=== PATIENT | male | born 1955 | race Caucasian/White ===

== ENCOUNTER → 2020-08-01 09:06 | Outpatient (BNVA) | payer OTHER, SELFPAY | PROVIDERS: PCP Internal Medicine; Referring Provider Internal Medicine; Visit Provider Internal Medicine Pulmonary Disease | DX: Z76.89 Persons encountering health services in other specified circumstances (principal) ==

== ENCOUNTER 2020-08-01 10:01 | Outpatient (REF) | payer OTHER, SELFPAY ==
--- NOTE | 2020-08-01 17:04 | PFT_ITS ---
Forced vital capacity is normal. FEV1 slightly reduced. FEV1/FVC ratio is decreased. ULD01-45 is moderately reduced and MVV also moderately reduced. Post bronchodilator therapy, there is no significant improvement. Total lung capacity normal. Residual volume slightly increased. Diffusion capacity is normal. CONCLUSION: Jolh-fz-alnawela degree of obstructive airway disorder. No response to bronchodilator therapy. MD RYLEE Vazquez/MODL / [id number]
== END 2020-08-01 10:02 | disposition home or self-care (01) ==
LOC: HO.RESP 10:01
PROVIDERS: Visit Provider Internal Medicine Pulmonary Disease
DX: J43.9 Emphysema, unspecified (principal)
CPT/HCPCS: 94060; 94727; 94729

== ENCOUNTER → 2020-12-04 15:43 | Outpatient (BNVA) | payer BC, SELFPAY | PROVIDERS: PCP Internal Medicine; Visit Provider Internal Medicine Pulmonary Disease ==

== ENCOUNTER 2020-12-14 14:25 | Outpatient (REF) | payer BC, SELFPAY ==
--- NOTE | ~2020-12-14 | FL_ITS ---
EXAMINATION: XR BARIUM SWALLOW CLINICAL INFORMATION: Dysphagia COMPARISON: None TECHNIQUE: Routine modified barium swallow was performed with the patient in a left lateral seated position. The patient took thin, nectar, honey-thick, pureed and solid food consistencies of barium without difficulty. FINDINGS: The patient demonstrated normal oral bolus formation. There was a slight delay in the swallow trigger mechanism with mild pooling of fluid in the vallecula and piriform sinuses. There was good contraction and elevation of the soft palate without evidence of nasopharyngeal reflux. There was good anterior-superior excursion of the laryngeal-hyoid complex. Limited posterior-inferior tipping of the epiglottis. No cricopharyngeal abnormalities were noted. There is narrowed appearance of the upper esophagus. There is aspiration visualized with thin, nectar, and honey thick liquids. This does trigger a cough reflex on some events, and is silent on others. FLUOROSCOPY TIME: 2.2 minutes DOSE AREA PRODUCT: 1.988 Gy-cm2 (shaffer-centimeter squared) FL/FL barium swallow modified IMPRESSION: 1. Aspiration with all liquid consistencies. 2. Abnormalities of the oral and pharyngeal phase of swallow. Narrowing of the cervical esophagus. 3. Please see speech pathology report for additional information and recommendations.
--- NOTE | 2020-12-20 09:17 | MHC.SL.IMP ---
Date of Plan of Treatment: 12/14/20 Onset of Symptoms/Illness: 09/15/00 Date Treatment Started: 12/14/20 Admitting Diagnosis: Modified Barium Swallow Study Fluoroscopic Evaluation of Swallowing Function CPT Code 90180 Evaluation Year: 2020 Reason for Study: Dysphagia Referring Physician: Dr. 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 Social History: Prior Tobacco Use: cigarettes; Quit 1999; Current (pre-evaluation) Intake/Diet: Route: PO Diet Grade: Regular Liquid Consistencies: Thin Pre-Study Functional Oral Intake Scale (FOIS): 6- Total oral intake with no special preparation, but must avoid specific foods or liquid items Pain: None reported at time of study Primary Speech & Language Diagnosis: R13.12 Oropharyngeal Phase Dysphagia Secondary Speech & Language Diagnosis: Reason for Today's Visit: 23451 Modified Barium Swallow Study Comments: Pt has past medical history significant for squamous cell carcinoma of the larynx. Pt is status post chemotherapy and radiation. Pre-evaluation Dietary Consistencies: Regular Pre-evaluation Liquid Consistency: Thin Pre-evaluation Medication Administration: Whole with Liquid Medical History: Cancer:Head & Neck COPD Background Information: Pt is a 65 year old male who was referred for a modified barium swallow study by his hydroelectric operator, Dr. Keven Pickett. Information provided in this report was obtained through chart review and pt report. Pt attended this exam unaccompanied and ambulates without assistance. Pt is a former 25+ pack/year smoker however, quit in 1999. He reports history of throat cancer back in 2000 which he received chemotherapy and radiation with resolution. Pt's condition further complicated by dysphagia and aspiration risk resulting in right upper lobe abscess approximately 2 years prior. This has since been resolved. Pt was seen by Dr. Pickett on 12/04/20 for management of underlying COPD/emphysema and pulmonary nodules. Per pt report, pt was admitted to [facility] in October of 2020 for aspiration PNA. Pt was intubated and extubated 2 days after. Per reportedly evaluated by EXTRUSION PROCESS OPERATOR post extubation and recommended thickened liquids. Pt stated that he has never received an MBSS evaluation following radiation therapy or during recent hospitalization. Pt stated that he has thickener at home for his beverages however, rarely uses it. He also reported that he talks a lot during meals and believes that is contributing to his increased swallowing difficulties. Oral Motor Exam Facial Symmetry: Symmetrical Facial Movement: Oral-Facial Facial Miscellaneous Observations: Mouth Occlusion: Normal Oral-Facial Teeth Characteristics: Intact/Normal Oral-Facial Teeth Miscellaneous Observation: Natural dentition adequate for mastication Oral-Facial Lip Pucker Description: Normal Oral-Facial Smile (Lips) Description: Normal Oral-Facial Puff Cheeks Description: Normal Tongue Size: Normal Tongue Frenum Length: Normal Tongue Excursion Description: Normal Tongue Range of Movement Description: Normal Tongue Speed of Movement Description: Normal Tongue Strength of Movement (against opposing pressure): Normal Tongue Movement Characteristics: Normal/Absent Oral Expression Ability: No Impairment Is patient able to manage secretions?: Yes Is patient able to produce volitional cough?: Yes Food and Liquid Trials: Oral Impairment: Lip Closure: 1=Interlabial escape; no progression to anterior tip Oral Impairment: Tongue Control During Bolus Hold: 1=Escape to lateral buccal cavity/floor of mouth (FOM) Oral Impairment: Bolus Preparation/Mastication: 0=Timely and efficient chewing and mashing Oral Impairment: Bolus Transport/Lingual Motion: 0=Brisk tongue motion Oral Impairment: Oral Residue: 2=Residue collection on oral structures Oral Impairment:Initiation of Pharyngeal Swallow: 3=Bolus head in pyriforms Pharyngeal Impairment: Soft Palate Elevation: 0=No bolus between soft palate (SP)/pharyngeal wall (PW) Pharyngeal Impairment: Larngeal Elevation: 2=Minimal superior movement of thyroid cartilage (see description) Pharyngeal Impairment: Anterior Hyoid Excursion: 1=Partial anterior movement Pharyngeal Impairment: Epiglottic Movement: 2=No inversion Pharyngeal Impairment: Laryngeal Vestibular Closure:: 2=None: No inversion Pharyngeal Impairment: Pharyngeal Stripping Wave: 1=Present: diminished Pharyngeal Impairment: Pharyngeal Contraction: Did not test Pharyngeal Impairment: Pharyngoesophageal Segment Openin=Minimal distension/minimal duration: marked obstruction of flow Pharyngeal Impairment: Tongue Base (TB) Retraction: 2=Narrow column of contrast/air between TB and posterior PW Pharyngeal Impairment: Pharyngeal Residue: 3=Majority of contrast within or on pharyngeal structures Pharyngeal Impairment: Espohogeal Clearance Upright Position: Did not test Impressions and Recommendations Clinicial Observations: Time-out: performed at 3:00 Evaluation Start: 02:37; Stop: 02:43 Patient Positioning: Seated 70-90 degrees Viewing Planes: LATERAL ONLY Contrast: MBSImP? Standardized Protocol using commercially prepared, standardized Barium viscosities, including: Varibar? THIN LIQUID (40% w/v, <15 cps) , Varibar? NECTAR (40% w/v, <150-450 cps) , Varibar? THIN HONEY (40% w/v, <800-1800 cps) , 1/2 Shortbread Cookie (1 x1 x.25 ) MBSImP ID: [id number] [facility] Results: Lip closure for intraoral bolus containment resulted in interlabial escape, without progression to the anterior lip. Tongue control during bolus hold allowed bolus escape to the lateral buccal cavity/floor of mouth. Bolus preparation and mastication resulted in timely and efficient chewing and mashing. Bolus transport/lingual motion was with brisk tongue motion. Oral residue was a collection on oral structures. Initiation of the pharyngeal swallow occurred when the bolus head was in the pyriform sinuses. Soft palate elevation resulted in no bolus between the soft palate and the pharyngeal wall. Laryngeal elevation was incomplete, as indicated through minimal superior movement of the thyroid cartilage with minimal approximation of the arytenoids to the epiglottic petiole. Anterior hyoid excursion demonstrated partial anterior movement. Epiglottic movement resulted in no inversion. Laryngeal vestibular closure was absent, resulting in a wide column of air/contrast within the laryngeal vestibule at the height of the swallow. Pharyngeal stripping wave was present, but diminished. Pharyngeal contraction could not be determined due to logistical reasons not related to physiologic impairment. Pharyngoesophageal segment opening demonstrated minimal distension/minimal duration, with marked obstruction of bolus flow. Tongue base retraction allowed a narrow column of contrast or air between the retracted tongue base and the posterior pharyngeal wall. Pharyngeal residue was the majority of contrast within or on pharyngeal structures. Esophageal clearance in the upright position could not be assessed due to logistical reasons not related to physiologic impairment. Oral Impairment Score: 6 Pharyngeal Impairment Score: 15 (absence of score, component 13) Esophageal Impairment Score: --- (absence of score, component 17) ASSESSMENT: This exam was conducted by radiologist and speech-language pathologist. Patient was seated at 90 degree angle in chair for lateral view only. Patient was able to feed himself. He trialed the following solid and liquid consistencies: -5mL thin liquid barium -Cup sip thin liquid barium -Cup sip [place] thick liquid barium -Cup sip Thin Honey thick liquid barium -Pureed solid (applesauce mixed with barium paste) -Ground solid (chicken salad mixed with barium paste) -Regular solid (Shonda Doone cookie coated in barium paste) The patient's performance in today's study indicated impairment in the following components of swallowing physiology: ORAL PHASE: -Mild oral residue coating tongue base -Delayed pharyngeal swallow trigger when bolus head reached pyriform sinuses PHARYNGEAL PHASE: -Partial laryngeal elevation with partial anterior hyoid movement and no epiglottic inversion -Incomplete laryngeal vestibular closure with minimal superior movement of the thyroid cartilage and minimal approximation of arytenoids to epiglottic petiole -Minimal distension/minimal duration: marked obstruction of flow through pharyngoesophageal segment opening -Reduced tongue base retraction -Diminished pharyngeal stripping wave -Moderate pharyngeal residue; majority of contrast within or on pharyngeal structures Aspiration was observed in today's study. Thin Contrast entered the airway, passed below the vocal folds, and was not ejected from the trachea despite effort. Honey-thick, [place]-thick Contrast entered the airway, passed below the vocal folds, and no effort were made to eject. Pt stated that he has been having trouble swallowing for years, globus sensation and coughing with liquids. Pt also stated that he talks while eating and he notices that his swallowing difficulties increase during these instances. Pt's ability to protect his airway is impaired as a result of radiation therapy. Oral phase largely unremarkable. Pharyngeal swallow trigger is delayed. Pt's laryngeal elevation and excursion significantly reduced, epiglottic inversion was not visualized, minimal pharyngeal contraction resulting in increased pharyngeal retention, minimal tongue base retraction, and dysfunction of PES marked by minimal distension/duration of bolus flow through opening. The following compensatory strategies were trialed during today's study with no positive effect in swallowing function. Pt's history with these strategies is unknown. -Additional Swallow(s) per bolus -Chin tuck -Volitional cough and re-swallow -Volitional throat clear and re-swallow -Head turn to right and left Based on results of this exam, safest recommendation is NPO. Recommend consult with G.I./nutrition to determine appropriateness of ALTERNATIVE FEEDING METHOD due to visualized aspiration with all liquid consistencies on this exam, significant pharyngeal retention with no airway protection on this exam, and previous history of aspiration pneumonia requiring intubation. However, patient expressed that he is very motivated to eat by mouth. If patient chooses to forgo PO diet despite risk of aspiration/ pneumonia and EXTRUSION PROCESS OPERATOR recommendation for NPO, with understanding of these results and recommendations, patient may consider modified diet GROUND/MEC (NDD2) solids and PUDDING THICK liquids or HARRIS FREE WATER PROTOCOL with STRICT aspiration precautions and rigorous oral care routine. Patient expressed apprehension with thickener. Pt to have water, black coffee, or black tea (no cream or sugar) in limited quantities ONLY if pt follows STRICT ORAL CARE ROUTINE (at least 4 times daily). Regardless, pt requires strict aspiration precautions: -upright at 90 degrees when eating and drinking -small bites and sips -alternate solids with liquids -avoid sticky consistencies -FREQUENT ORAL CARE (4 times daily) EXTRUSION PROCESS OPERATOR also recommends speech therapy consult/evaluation with a speech therapist certified and trained in [employer] to determine candidacy for therapy. This therapy is provided at [facility] in [place], [place]. EXTRUSION PROCESS OPERATOR specialized in treatment of swallowing disorders status post chemo and radiation therapy may also trial thermal stimulation or other exercises though pt's prognosis is guarded given his past history of squamous cell carcinoma affecting the larynx. It is important to note MBSS objective studies are snapshots in time and Patient function might vary with factors such as time of day or concomitant medical conditions. For this reason, the final treatment plan for this patient should rest with their medical care team. Additional recommendations should be considered with the totality of the Patient in mind. Liquid Intake Recommendation: NPO Liquid Intake Strategies: Dietary Recommendations: NPO Medication Administration: NPO Supervision during eating and or drinking: None Needed Recommended Treatments: Compens. Strategy Educat. Recommendation for Speech Therapy: Outpatient Speech Therapy Speech Therapy through [facility] Text Comment: Recommend speech therapy consult/evaluation with a speech therapist certified and trained in [employer] to determine candidacy for therapy. This therapy is provided at [facility] in [place], [place]. EXTRUSION PROCESS OPERATOR specialized in treatment of swallowing disorders status post chemo and radiation therapy may also trial thermal stimulation or other exercises, though pt's prognosis is guarded given his past history of squamous cell carcinoma affecting the larynx. Frequency/Duration: To be determined based on candidacy for treatment Date Range for Service Requested: Timeline to reassess: PRN REFERRALS: The patient might benefit from a referral to: Gastroenterology Indication for Referral: Visible narrowing of esophagus Pulmonary Indication for Referral: Follow up with Dr. Pickett Alternate Feeding Method Indication for Referral: Aspiration visualized with all liquid consistencies and increased pharyngeal retention with no airway protection resulting in increased risk for aspiration. Dietary Consult Indication for Referral: Alternative feeding method ENT Consult Indication for Referral: Hx laryngeal cancer Thank for the opportunity to participate in the care of this patient. If you have any questions about the content of this report, please contact the [facility] at [facility]. Business Intelligence Etl Developer Clinican/Clinical Fellow: Yes: Tanya Garzon M.A., CF-EXTRUSION PROCESS OPERATOR Supervisory Statement: Yes Speech Language Pathologist: Doreen Young M.A., CCC-EXTRUSION PROCESS OPERATOR
== END 2020-12-14 14:26 | disposition home or self-care (01) ==
LOC: HO.XRAY 14:25
PROVIDERS: Visit Provider Internal Medicine Pulmonary Disease
DX: R13.10 Dysphagia, unspecified (principal)
CPT/HCPCS: 74230; 92611

== ENCOUNTER → 2020-12-22 15:36 | Outpatient (BNVA) | payer BC, SELFPAY | PROVIDERS: PCP Internal Medicine; Visit Provider Internal Medicine Pulmonary Disease ==

== ENCOUNTER → 2021-04-13 11:16 | Outpatient (BNVA) | payer OTHER, SELFPAY | PROVIDERS: PCP Internal Medicine; Visit Provider Physician Assistant Medical | DX: S61.212A Laceration without foreign body of right middle finger without damage to nail, initial encounter (principal); W26.9XXA Contact with unspecified sharp object(s), initial encounter | CPT/HCPCS: 90715; 99203 ==

== ENCOUNTER → 2021-04-16 13:33 | Outpatient (BNVA) | payer OTHER, SELFPAY | PROVIDERS: PCP Internal Medicine; Visit Provider Physician Assistant Medical | DX: S61.212D Laceration without foreign body of right middle finger without damage to nail, subsequent encounter (principal); X58.XXXD Exposure to other specified factors, subsequent encounter | CPT/HCPCS: 99213 ==

== ENCOUNTER → 2021-05-18 15:36 | Outpatient (BNVA) | payer BC, OTHER, SELFPAY | PROVIDERS: PCP Internal Medicine; Visit Provider Internal Medicine Pulmonary Disease ==

== ENCOUNTER → 2021-11-20 15:30 | Outpatient (BNVA) | payer BC, SELFPAY | PROVIDERS: PCP Internal Medicine; Visit Provider Internal Medicine Pulmonary Disease ==

== ENCOUNTER → 2023-01-21 14:39 | Outpatient (BNVA) | payer BC, SELFPAY | PROVIDERS: PCP Internal Medicine; Visit Provider Internal Medicine Pulmonary Disease ==

== ENCOUNTER → 2023-03-05 13:29 | Outpatient (BNVA) | payer MEDICARE, SELFPAY | PROVIDERS: PCP Internal Medicine; Visit Provider Internal Medicine Pulmonary Disease | DX: J43.9 Emphysema, unspecified (principal); Z93.0 Tracheostomy status | CPT/HCPCS: 99212 ==

== ENCOUNTER 2023-05-30 09:20 | Outpatient (AMB) | payer MEDICARE, SELFPAY ==
[2023-05-30 09:22] VITALS: BP 146/72; PULSE 67; O2SAT 99; BMI 22.9
--- NOTE | 2023-05-30 09:22 | MHC.OFFVIS ---
Intake Vital Signs 05/30/23 09:22 Height 5 ft 4 in Weight 133 lb 6.075 oz BMI 22.9 BP 146/72 H Blood Pressure Location Lt brachial Position Sitting Pulse 67 Pulse Source Doppler Pulse Oximetry (%) 99 Oxygen Delivery Method Room Air Intake Visit Reasons: COPD Allergies No Known Allergies Allergy (Verified 05/30/23 09:24) HPI COPD HPI Details 67-year-old gentleman, former 25+ pack-year smoker, quit 1999, with underlying history of squamous cell carcinoma of the larynx, status post chemo radiotherapy at [facility] in 2000 with resolution, further complicated by dysphagia and aspiration risk resulting in right upper lobe pulmonary abscess previously, now resolved, followed for underlying COPD/emphysema, and pulmonary nodules.? Patient had another aspiration event around the beginning of 2022 requiring prolonged hospitalization in [place], now status post tracheostomy and gastrostomy placement.? He continues to do well, the he does states that after an activity that involves on exertion he fill some dyspnea and he is interested in trying Anoro again. [facility] Social History Years Smoked: 25 yrs Review of Systems Const Denies daytime sleepiness, Denies excessive sweating, Denies fatigue, Denies fever(s), Denies lethargy, Denies malaise, Denies night sweats, Denies snoring and Denies weight loss Eyes Denies blurry vision and Denies itchy eyes ENT Denies nasal congestion, Denies post nasal drip, Denies sinus pain, Denies sinus pressure and Denies other ( Thrush) Card Denies chest pain, Denies pedal edema, Denies dyspnea, Denies orthopnea and Denies paroxysmal nocturnal dyspnea Resp Denies cough, Denies hemoptysis, Denies excessive phlegm production, Denies dyspnea, Denies snoring and Denies wheezing GI Denies abdominal pain and Denies heartburn Musc Denies myalgias, Denies arthralgias and Denies joint swelling Skin/Breast Denies rash Neuro Denies memory loss and Denies seizure-like activity Psych Denies abnormal sleep pattern, Denies anxiety and Denies memory loss Endo Denies excessive sweating, Denies fatigue and Denies heat intolerance Joel/Lymph Denies easy bruising Aller/Immun Denies itchy eyes, Denies seasonal rhinorrhea and Denies wheezing Physical Exam Vital Signs: Last Vital Signs Pulse 67 05/30/23 09:22 BP 146/72 H 05/30/23 09:22 Pulse Ox 99 05/30/23 09:22 Oxygen Delivery Method Room Air 05/30/23 09:22 BMI result Body Mass Index 22.9 Const General: no acute distress and alert Nutritional Appearance: not obese Orientation/consciousness: Other orientation findings ( oriented) HEENT Head: Yes atraumatic Eyes General: appearance normal, both eyes and all related structures Sclerae: sclerae normal EOM: EOMs intact bilaterally Neck Neck: Yes supple and Yes tracheostomy present (To room air) Lymphatic: no lymphadenopathy noted Resp Effort & Inspection: normal respiratory effort and no use of accessory muscles Auscultation: clear to auscultation bilaterally Cardio Rate: regular rate Rhythm: regular rhythm Heart sounds: no gallops, no murmurs and no rubs Skin General skin exam: other ( warm) Extrem General: No clubbing, No cyanosis and No edema Assessment & Plan Assessment & Plan (1) Emphysema lung: Code(s): J43.9 - Emphysema, unspecified Plan: Restart Anoro. (2) Status post tracheostomy: Code(s): Z93.0 - Tracheostomy status Plan: Patient continues to follow-up with [facility] for routine care. Medications: Refilled umeclidinium-vilanterol 62.5-25 mcg/actuation (Anoro Ellipta) 1 inh inhalation DAILY 3 ea 6RF 90 days Coding Level of Care Code Est Pt Level 4 (71883) Diagnoses Emphysema lung J43.9 Status post tracheostomy Z93.0
== END 2023-05-30 09:35 | disposition home or self-care (01) ==
PROVIDERS: PCP Internal Medicine; Visit Provider Internal Medicine Pulmonary Disease
DX: J43.9 Emphysema, unspecified (principal); Z93.0 Tracheostomy status
CPT/HCPCS: 99214

== ENCOUNTER → 2023-05-30 09:20 | Outpatient (BNVA) | payer MEDICARE, SELFPAY | PROVIDERS: Visit Provider Internal Medicine Pulmonary Disease | DX: J43.9 Emphysema, unspecified (principal); Z93.0 Tracheostomy status | CPT/HCPCS: 99212 ==

== ENCOUNTER 2023-08-05 09:54 | Outpatient (AMB) | payer MEDICARE, SELFPAY ==
--- NOTE | 2023-08-05 09:58 | MHC.OFFVIS ---
Intake Vital Signs 08/05/23 09:59 Height 5 ft 4 in Weight 135 lb BMI 23.2 BP 124/68 Blood Pressure Location Rt brachial Position Sitting Pulse 71 Pulse Source Pulse Oximeter Pulse Oximetry (%) 100 Oxygen Delivery Method Room Air Intake Visit Reasons: Pulm Clearance/R Knee Arthroscopy Extrusion Technician Required: No Plumber Supervisor: Plumber Supervisor offered & declined Accompanied by: Self / Same As Patient Allergies No Known Allergies Allergy (Verified 08/05/23 10:02) Medication List - Last Reconciled 08/05/23 by Catherine Loera LPN atenolol 50 mg PO DAILY atorvastatin 40 mg PO DAILY omeprazole 40 mg PO BID umeclidinium-vilanterol 62.5-25 mcg/actuation (Anoro Ellipta) 1 inh inhalation DAILY 90 days HPI Pulm Clearance/R Knee Arthroscopy HPI Details Regan is pleasant 68 year old gentleman, former 25+ pack-year smoker, quit 1999, with underlying history of squamous cell carcinoma of the larynx, s/p chemo/radiation at [facility] in 2000, complicated by dysphagia and aspiration risk resulting in right upper lobe pulmonary abscess, now resolved, with tracheostomy followed for underlying COPD/emphysema, and pulmonary nodules.? At baseline, he is well controlled on Anoro and duoneb PRN. Today he presents for perioperative pulmonary evaluation for proposed arthroscopic procedure of right knee with KADEEM, Dr. Day, on 08/14/23. He reports tearing his meniscus while playing pickle ball mid June. He denies any recent respiratory infections, hospitalizations or need for prednisone/antibiotics since September. He denies any cough, wheezing, significant dyspnea or chest tightness. [facility] [place] Medical History (Updated 07/25/23 @ 10:38 by Lia Stinson PA-C) FRANCINE (iron deficiency anemia) GERD (gastroesophageal reflux disease) Hyperlipidemia Hypertension History of renal cell cancer History of laryngeal cancer Surgical History (Updated 07/25/23 @ 10:38 by Lia Stinson PA-C) History of bronchoscopy (~2017) History of left inguinal hernia repair (~2015) History of left nephrectomy (~2008) (Updated 08/05/23 @ 10:03 by Catherine Loera LPN) Patient Tobacco Use Status: Former Tobacco user Quit Date: 2002 Years Smoked: (onset 16yo, 1-1.5ppd x 32yrs, quit 2002) Review of Systems Const Denies chills, Denies excessive sweating, Denies fever(s), Denies headache(s) and Denies night sweats Eyes Denies dry eyes, Denies irritation and Denies itchy eyes ENT Reports Normal hearing present, Denies headache(s), Denies nasal congestion, Denies nasal discharge, Denies post nasal drip and Denies sore throat Card Denies chest pain, Denies chest pain at rest, Denies chest pain with activity, Denies claudication, Denies leg edema, Denies dyspnea, Denies dyspnea on exertion, Denies orthopnea and Denies paroxysmal nocturnal dyspnea Resp Denies chest congestion, Denies excessive phlegm production, Denies pain on inspiration, Denies pain with cough, Denies dyspnea, Denies dyspnea on exertion, Denies stridor and Denies wheezing Musc Denies myalgias Neuro Reports Normal hearing present and Denies headache(s) Endo Denies excessive sweating Joel/Lymph Denies lymphadenopathy Aller/Immun Denies itchy eyes, Denies seasonal rhinorrhea and Denies wheezing Physical Exam Vital Signs: Last Vital Signs Pulse 71 08/05/23 09:59 BP 124/68 08/05/23 09:59 Pulse Ox 100 08/05/23 09:59 Oxygen Delivery Method Room Air 08/05/23 09:59 BMI result Body Mass Index 23.2 Const General: cooperative, healthy appearing, comfortable, no acute distress, well developed and alert Orientation/consciousness: patient oriented x3 HEENT Head: Yes normal to inspection, Yes normocephalic and Yes atraumatic Ears: hearing grossly normal bilaterally and external ears normal Eyes General: appearance normal, both eyes and all related structures Eyelids: Yes eyelids normal Sclerae: sclerae normal EOM: EOMs intact bilaterally Neck Lymphatic: no lymphadenopathy noted Chest Chest palpation & inspection: normal inspection of the chest Resp Other: rhonchi throughout, improved with duoneb Effort & Inspection: normal respiratory effort, able to speak in complete sentences, no audible wheezes, no stridor, not tachypneic and no tripod positioning Cardio Jugular venous distension: no JVD Rate: regular rate Rhythm: regular rhythm Skin Other: warm, dry General skin exam: no rashes or lesions noted Neuro General: patient oriented x3 Cranial nerves: Yes Normal hearing present Cognition (Neuro): normal cognition Gait exam (Neuro): Normal gait present Extrem General: Yes normal to inspection, Yes capillary refill normal, Yes no clubbing, cyanosis or edema and Yes no pedal edema Psych Appearance: grossly normal and well kempt Speech and movement: Normal speech and movement present and Clear speech present Affect: normal affect Attitude: cooperative Thought process: Normal thought process present Thought content: Normal thought content present Insight: Good insight present (Psych) Judgement: Good judgement present (Psych) Office Procedures Nebulizer Treatment Nebulizer Treatment 73573-[id number]/MDI RX initial, or Nebulizer Subsequent Treatment Office Meds ipratropium 0.5 mg-albuterol 3 mg (2.5 mg base)/3 mL nebulization soln Performing Provider: Sweetie Rey NP [place] [facility] [place] Administered by: Catherine Loera LPN on 08/05/23 10:30 Dose Route Admin Location Dispensed Lot Number Expiration Date NDC Certified Bench Jeweler Technician 3 mL inhalation 3 mL [id number] 06/14/25 05573-582-54 [employer] Results Reviewed Results Reviewed: PFT 07/2020 Assessment & Plan Assessment & Plan (1) Emphysema lung: Code(s): J43.9 - Emphysema, unspecified (2) Status post tracheostomy: Code(s): Z93.0 - Tracheostomy status Plan: Patient continues to follow-up with [facility]. (3) Pulmonary nodules: Code(s): R91.8 - Other nonspecific abnormal finding of lung field Plan: Patient continues to follow-up with [facility] lung cancer screening program. (4) Preop pulmonary/respiratory exam: Code(s): Z01.811 - Encounter for preprocedural respiratory examination Plan Patient presents for preoperative pulmonary evaluation for proposed arthroscopic surgery with NEOS. At baseline patient is well controlled on current regimen a low risk for perioperative complications however currently presents with a mild exacerbation. Will send in prednisone and encouraged use of duoneb BID until follow up Friday to reevaluate. All questions were answered and patient is in agreement of plan. Orders: Orders AMB Nebulizer Treatment 08/05/23 J43.9 - Emphysema, unspecified Medications: New ipratropium-albuterol 0.5 mg-3 mg(2.5 mg base)/3 mL 3 mL inhalation Q6H PRN 90 mL 0RF wheezing prednisone 40 mg (2 x 20 mg) PO DAILY 10 tabs 0RF prednisone 40 mg (2 x 20 mg) PO DAILY 10 tabs 0RF Coding Level of Care Code Est Pt Level 4 (85996) Diagnoses Emphysema lung J43.9 Status post tracheostomy Z93.0 Pulmonary nodules R91.8 Preop pulmonary/respiratory exam Z01.811 CPT Codes Nebulizer Treatment - Nebulizer Treatment, initial or subsequent: [id number]/MDI RX initial, or Nebulizer Subsequent Treatment ([id number])
[2023-08-05 09:59] VITALS: BP 124/68; PULSE 71; O2SAT 100; BMI 23.2
== END 2023-08-05 11:17 | disposition home or self-care (01) ==
PROVIDERS: PCP Internal Medicine; Visit Provider Nurse Practitioner Family
DX: J43.9 Emphysema, unspecified (principal); Z93.0 Tracheostomy status; R91.8 Other nonspecific abnormal finding of lung field; Z01.811 Encounter for preprocedural respiratory examination
CPT/HCPCS: 99214

== ENCOUNTER → 2023-08-05 09:54 | Outpatient (BNVA) | payer MEDICARE, SELFPAY | PROVIDERS: PCP Internal Medicine; Visit Provider Nurse Practitioner Family | DX: Z01.811 Encounter for preprocedural respiratory examination (principal); J43.9 Emphysema, unspecified; R91.8 Other nonspecific abnormal finding of lung field; Z87.891 Personal history of nicotine dependence; Z85.21 Personal history of malignant neoplasm of larynx; Z85.53 Personal history of malignant neoplasm of renal pelvis; Z92.21 Personal history of antineoplastic chemotherapy; Z92.3 Personal history of irradiation; Z90.5 Acquired absence of kidney; Z93.0 Tracheostomy status; Z79.899 Other long term (current) drug therapy | CPT/HCPCS: 94640; 99212 ==

== ENCOUNTER 2023-08-12 09:26 | Outpatient (AMB) | payer MEDICARE, SELFPAY ==
[2023-08-12 09:32] VITALS: BP 136/72; PULSE 74; O2SAT 97; BMI 23.0
--- NOTE | 2023-08-12 09:32 | MHC.OFFVIS ---
Intake Vital Signs 08/12/23 09:32 Height 5 ft 4 in Weight 134 lb BMI 23.0 BP 136/72 Blood Pressure Location Rt brachial Position Sitting Pulse 74 Pulse Source Pulse Oximeter Pulse Oximetry (%) 97 Oxygen Delivery Method Room Air Intake Visit Reasons: follow up Senior Research Project Manager Required: No Cottage Attendant: Cottage Attendant offered & declined Accompanied by: Self / Same As Patient Allergies No Known Allergies Allergy (Verified 08/12/23 09:38) Medication List - Last Reconciled 08/12/23 by Catherine Loera LPN atenolol 50 mg PO DAILY atorvastatin 40 mg PO DAILY ipratropium-albuterol 0.5 mg-3 mg(2.5 mg base)/3 mL 3 mL inhalation Q6H PRN omeprazole 40 mg PO BID prednisone 40 mg (2 x 20 mg) PO DAILY umeclidinium-vilanterol 62.5-25 mcg/actuation (Anoro Ellipta) 1 inh inhalation DAILY 90 days HPI follow up HPI Details Regan is pleasant 68 year old gentleman, former 25+ pack-year smoker, quit 1999, with underlying history of squamous cell carcinoma of the larynx, s/p chemo/radiation at [facility] in 2000, complicated by dysphagia and aspiration risk resulting in right upper lobe pulmonary abscess, now resolved, with tracheostomy followed for underlying COPD/emphysema, and pulmonary nodules.? At baseline, he is well controlled on Anoro and duoneb PRN. He was seen last week for preoperative evaluation for proposed arthroscopic procedure of right knee with KADEEM, Dr. Day, on 08/14/23 and had significant rhonchi throughout, placed on prednisone and advised to use duoneb.Today he presents for evaluation after starting prednisone. He denies any cough, wheezing, significant dyspnea or chest tightness. [facility] Medical History (Updated 07/25/23 @ 10:38 by Lia Stinson PA-C) FRANCINE (iron deficiency anemia) GERD (gastroesophageal reflux disease) Hyperlipidemia Hypertension History of renal cell cancer History of laryngeal cancer Surgical History (Updated 07/25/23 @ 10:38 by Lia Stinson PA-C) History of bronchoscopy (~2017) History of left inguinal hernia repair (~2015) History of left nephrectomy (~2008) (Updated 08/12/23 @ 09:39 by Catherine Loera LPN) Patient Tobacco Use Status: Former Tobacco user Quit Date: 2002 Years Smoked: (onset 16yo, 1-1.5ppd x 32yrs, quit 2002) Smoked in Last 30 Days: No Review of Systems Const Denies chills, Denies excessive sweating, Denies fever(s), Denies headache(s) and Denies night sweats Eyes Denies dry eyes, Denies irritation and Denies itchy eyes ENT Reports Normal hearing present, Denies headache(s), Denies nasal congestion, Denies nasal discharge, Denies post nasal drip and Denies sore throat Card Denies chest pain, Denies chest pain at rest, Denies chest pain with activity, Denies claudication, Denies leg edema, Denies dyspnea, Denies dyspnea on exertion, Denies orthopnea and Denies paroxysmal nocturnal dyspnea Resp Denies chest congestion, Denies excessive phlegm production, Denies pain on inspiration, Denies pain with cough, Denies dyspnea, Denies dyspnea on exertion, Denies stridor and Denies wheezing Musc Denies myalgias Neuro Reports Normal hearing present and Denies headache(s) Endo Denies excessive sweating Joel/Lymph Denies lymphadenopathy Aller/Immun Denies itchy eyes, Denies seasonal rhinorrhea and Denies wheezing Physical Exam Vital Signs: Last Vital Signs Pulse 74 08/12/23 09:32 BP 136/72 08/12/23 09:32 Pulse Ox 97 08/12/23 09:32 Oxygen Delivery Method Room Air 08/12/23 09:32 BMI result Body Mass Index 23.0 Const General: cooperative, healthy appearing, comfortable, no acute distress, well developed and alert Orientation/consciousness: patient oriented x3 HEENT Head: Yes normal to inspection, Yes normocephalic and Yes atraumatic Ears: hearing grossly normal bilaterally and external ears normal Eyes General: appearance normal, both eyes and all related structures Eyelids: Yes eyelids normal Sclerae: sclerae normal EOM: EOMs intact bilaterally Neck Other: trach with speaking valve Neck: Yes tracheostomy present Lymphatic: no lymphadenopathy noted Chest Chest palpation & inspection: normal inspection of the chest Resp Other: diminished bilaterally, clear without rhonchi or wheezing Effort & Inspection: normal respiratory effort, able to speak in complete sentences, no audible wheezes, no stridor, not tachypneic and no tripod positioning Auscultation: diminished lung sounds Cardio Jugular venous distension: no JVD Rate: regular rate Rhythm: regular rhythm Skin Other: warm, dry General skin exam: no rashes or lesions noted Neuro General: patient oriented x3 Cranial nerves: Yes Normal hearing present Cognition (Neuro): normal cognition Gait exam (Neuro): Normal gait present Extrem General: Yes normal to inspection, Yes capillary refill normal, Yes no clubbing, cyanosis or edema and Yes no pedal edema Psych Appearance: grossly normal and well kempt Speech and movement: Normal speech and movement present and Clear speech present Affect: normal affect Attitude: cooperative Thought process: Normal thought process present Thought content: Normal thought content present Insight: Good insight present (Psych) Judgement: Good judgement present (Psych) Assessment & Plan Assessment & Plan (1) Emphysema lung: Code(s): J43.9 - Emphysema, unspecified (2) Status post tracheostomy: Code(s): Z93.0 - Tracheostomy status Plan: Patient continues to follow-up with [facility]. (3) Pulmonary nodules: Code(s): R91.8 - Other nonspecific abnormal finding of lung field Plan: Patient continues to follow-up with [facility] lung cancer screening program. (4) Preop pulmonary/respiratory exam: Code(s): Z01.811 - Encounter for preprocedural respiratory examination Plan Patient presents for reevaluation after mild COPD exacerbation. At baseline patient is well controlled on current regimen and has responded well to prednisone, lungs sounds clear. He is a low risk for perioperative complications for proposed arthroscopic surgery with NEOS. All questions were answered and patient is in agreement of plan. Coding Level of Care Code Est Pt Level 2 (51291) Diagnoses Emphysema lung J43.9 Status post tracheostomy Z93.0 Pulmonary nodules R91.8 Preop pulmonary/respiratory exam Z01.811
== END 2023-08-12 09:45 | disposition home or self-care (01) ==
PROVIDERS: PCP Internal Medicine; Visit Provider Nurse Practitioner Family
DX: J43.9 Emphysema, unspecified (principal); Z93.0 Tracheostomy status; R91.8 Other nonspecific abnormal finding of lung field; Z01.811 Encounter for preprocedural respiratory examination
CPT/HCPCS: 99212

== ENCOUNTER → 2023-08-12 09:26 | Outpatient (BNVA) | payer MEDICARE, SELFPAY | PROVIDERS: PCP Internal Medicine; Visit Provider Nurse Practitioner Family | DX: Z01.811 Encounter for preprocedural respiratory examination (principal); J43.9 Emphysema, unspecified; R91.8 Other nonspecific abnormal finding of lung field; Z93.0 Tracheostomy status | CPT/HCPCS: 99212 ==

== ENCOUNTER 2023-09-25 10:11 | Outpatient (AMB) | payer MEDICARE, SELFPAY ==
[2023-09-25 10:19] VITALS: BP 150/92; PULSE 92; O2SAT 99; BMI 23.5
--- NOTE | 2023-09-25 10:19 | HO.NEPHOV ---
HPI HPI Comments History of Present Illness Details I had the privilege of seeing Marcus in follow-up of his hypertension and hyponatremia. 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 He has no nausea, vomiting, diarrhea, aspiration pneumonias, pedal edema, shortness of breath. He has no history of renal or liver failure. He denies any symptoms of Lea pain Marianne, weakness, altered mental status. He had stopped oral urea it while ago and continues to fluid restrict himself. His last serum sodium was 138. He feels well. He has sleeping issues and was started on trazodone recently. He had stopped taking atorvastatin, levothyroxine and carvedilol for couple of weeks. All other systems were reviewed and were negative. [facility] Medical History (Updated 09/25/23 @ 10:58 by Chinedu Cevallos MD) FRANCINE (iron deficiency anemia) GERD (gastroesophageal reflux disease) Hyperlipidemia Hypertension History of renal cell cancer History of laryngeal cancer Surgical History History of bronchoscopy (~2017) History of left inguinal hernia repair (~2015) History of left nephrectomy (~2008) Social History Patient Tobacco Use Status: Former Tobacco user Quit Date: 2002 Years Smoked: (onset 16yo, 1-1.5ppd x 32yrs, quit 2002) Vital Signs 09/25/23 10:19 Height 5 ft 4 in Weight 137 lb BMI 23.5 BP 150/92 H Blood Pressure Location Lt brachial Position Sitting Pulse 92 Pulse Source Pulse Oximeter Pulse Oximetry (%) 99 Oxygen Delivery Method Room Air Physical Exam Vital Signs: Last Vital Signs Pulse 92 09/25/23 10:19 BP 150/92 H 09/25/23 10:19 Pulse Ox 99 09/25/23 10:19 Oxygen Delivery Method Room Air 09/25/23 10:19 BMI result Body Mass Index 23.5 Const General: comfortable and no acute distress Orientation/consciousness: patient oriented x3 HEENT Head: Yes normocephalic Mouth: Normal oral and palatal mucosa present Eyes EOM: EOMs intact bilaterally Resp Auscultation: clear to auscultation bilaterally Cardio Jugular venous distension: no JVD Rate: regular rate GI Palpation (GI): Soft to palpation Auscultation: normal bowel sounds General: Yes no CVA tenderness Back/Spine/Pelvis Back: no CVA tenderness Skin General skin exam: no rashes or lesions noted Neuro General: patient oriented x3 and moves all extremities Extrem General: Yes no pedal edema Assessment & Plan Assessment & Plan (1) Hypertension: Code(s): I10 - Essential (primary) hypertension Qualifiers: Hypertension type: primary hypertension Qualified Code(s): I10 - Essential (primary) hypertension Plan Grady had excess ADH with development of hyponatremia which was treated with oral urea. We have discontinued it and he remains on fluid restriction with stable serum sodium. He had stopped his antihypertensive medications and currently his blood pressure is not at goal. I put him back on his carvedilol and encouraged him to restart his atorvastatin and levothyroxine. His volume status is optimal. I did not make any other medication changes today. Follow-up blood work ordered and follow-up appointment given. Answered all questions. Orders: Orders Creatinine Today I10 - Essential (primary) hypertension Electrolytes Today I10 - Essential (primary) hypertension Blood Urea Nitrogen Today I10 - Essential (primary) hypertension Coding Level of Care Code Est Pt Level 4 (74876) Diagnoses Primary hypertension I10 Hypertension type: primary hypertension Results Reviewed Nephrology Results: No Data to Display
== END 2023-09-25 10:59 | disposition home or self-care (01) ==
PROVIDERS: PCP Internal Medicine; Visit Provider Internal Medicine Nephrology
DX: I10 Essential (primary) hypertension (principal)
CPT/HCPCS: 99214

== ENCOUNTER → 2023-09-25 10:11 | Outpatient (BNVA) | payer MEDICARE, SELFPAY | PROVIDERS: PCP Internal Medicine; Visit Provider Internal Medicine Nephrology | DX: I10 Essential (primary) hypertension (principal) | CPT/HCPCS: 99212 ==

== ENCOUNTER 2023-11-28 09:25 | Outpatient (AMB) | payer MEDICARE, SELFPAY ==
--- NOTE | 2023-11-28 09:27 | A.OFFVIS_ITS ---
Intake Vital Signs 11/28/23 09:28 Height 5 ft 4 in Weight 139 lb 15.896 oz BMI 24.0 BP 124/78 Blood Pressure Location Rt brachial Position Sitting Pulse 67 Pulse Source Doppler Pulse Oximetry (%) 97 Oxygen Delivery Method Room Air Intake Visit Reasons: COPD Allergies No Known Allergies Allergy (Verified 11/28/23 09:30) HPI COPD HPI Details 68-year-old gentleman, former 25+ pack-y ear smoker, quit 1999, with underlying history of squamous cell carcinoma of the larynx, status post chemo radiotherapy at [facility] in 2000 with resolution, further complicated by dysphagia and aspiration risk resulting in right upper lobe pulmonary abscess previously, now resolved, followed for underlying COPD/emphysema, and pulmonary nodules.? Patient had another aspiration event around the beginning of 2022 requiring prolonged hospitalization in [place], now status post tracheostomy and gastrostomy placement.? He continues to do well, he gets his tracheostomy changed in [place] every 6 months. He has been using Anoro and nebs with good control of his symptoms. He denies recent exacerbations. [facility] Medical History (Updated 09/25/23 @ 10:58 by Chinedu Cevallos MD) FRANCINE (iron deficiency anemia) GERD (gastroesophageal reflux disease) Hyperlipidemia Hypertension History of renal cell cancer History of laryngeal cancer Surgical History History of bronchoscopy (~2017) History of left inguinal hernia repair (~2015) History of left nephrectomy (~2008) Social History Patient Tobacco Use Status: Former Tobacco user Quit Date: 2002 Years Smoked: (onset 16yo, 1-1.5ppd x 32yrs, quit 2002) Review of Systems Const Denies daytime sleepiness, Denies excessive sweating, Denies fatigue, Denies fever(s), Denies lethargy, Denies malaise, Denies night sweats, Denies snoring and Denies weight loss Eyes Denies blurry vision and Denies itchy eyes ENT Denies nasal congestion, Denies post nasal drip, Denies sinus pain, Denies sinus pressure and Denies other ( Thrush) Card Denies chest pain, Denies pedal edema, Denies dyspnea, Denies orthopnea and Denies paroxysmal nocturnal dyspnea Resp Denies cough, Denies hemoptysis, Denies excessive phlegm production, Denies dyspnea, Denies snoring and Denies wheezing GI Denies abdominal pain and Denies heartburn Musc Denies myalgias, Denies arthralgias and Denies joint swelling Skin/Breast Denies rash Neuro Denies memory loss and Denies seizure-like activity Psych Denies abnormal sleep pattern, Denies anxiety and Denies memory loss Endo Denies excessive sweating, Denies fatigue and Denies heat intolerance Joel/Lymph Denies easy bruising Aller/Immun Denies itchy eyes, Denies seasonal rhinorrhea and Denies wheezing Physical Exam Vital Signs: Last Vital Signs Pulse 67 11/28/23 09:28 BP 124/78 11/28/23 09:28 Pulse Ox 97 11/28/23 09:28 Oxygen Delivery Method Room Air 11/28/23 09:28 BMI result Body Mass Index 24.0 Const General: no acute distress and alert Nutritional Appearance: not obese Orientation/consciousness: Other orientation findings ( oriented) HEENT Head: Yes atraumatic Eyes General: appearance normal, both eyes and all related structures Sclerae: sclerae normal EOM: EOMs intact bilaterally Neck Neck: Yes supple and Yes tracheostomy present (To room air) Lymphatic: no lymphadenopathy noted Resp Effort & Inspection: normal respiratory effort and no use of accessory muscles Auscultation: clear to auscultation bilaterally Cardio Rate: regular rate Rhythm: regular rhythm Heart sounds: no gallops, no murmurs and no rubs Skin General skin exam: other ( warm) Extrem General: No clubbing, No cyanosis and No edema Assessment & Plan Assessment & Plan (1) Emphysema lung: Code(s): J43.9 - Emphysema, unspecified Plan: Well controlled on Anoro and duo nebs. Continue current regimen. (2) Status post tracheostomy: Code(s): Z93.0 - Tracheostomy status Plan: Continues with routine care in [place]. Medications: Refilled umeclidinium-vilanterol 62.5-25 mcg/actuation (Anoro Ellipta) 1 inh inhalation DAILY 3 ea 6RF 90 days Coding Level of Care Code Est Pt Level 4 (28855) Diagnoses Emphysema lung J43.9 Status post tracheostomy Z93.0
[2023-11-28 09:28] VITALS: BP 124/78; PULSE 67; O2SAT 97; BMI 24.0
== END 2023-11-28 09:40 | disposition home or self-care (01) ==
PROVIDERS: PCP Internal Medicine; Visit Provider Internal Medicine Pulmonary Disease
DX: J43.9 Emphysema, unspecified (principal); Z93.0 Tracheostomy status
CPT/HCPCS: 99214

== ENCOUNTER → 2023-11-28 09:25 | Outpatient (BNVA) | payer MEDICARE, SELFPAY | PROVIDERS: PCP Internal Medicine; Visit Provider Internal Medicine Pulmonary Disease | DX: J43.9 Emphysema, unspecified (principal); Z93.0 Tracheostomy status | CPT/HCPCS: 99212 ==

== ENCOUNTER 2024-03-30 09:23 | Outpatient (AMB) | payer MEDICARE, SELFPAY ==
[2024-03-30 09:24] VITALS: BP 122/78; PULSE 65; O2SAT 97; BMI 23.2
--- NOTE | 2024-03-30 09:24 | HO.NEPHOV ---
Vital Signs 03/30/24 09:24 Height 5 ft 4 in Weight 135 lb BMI 23.2 BP 122/78 Blood Pressure Location Lt brachial Position Sitting Pulse 65 Pulse Source Pulse Oximeter Pulse Oximetry (%) 97 Oxygen Delivery Method Room Air Intake Visit Reasons: 6M follow up/ Conf Jockey Room Custodian Required: No Accompanied by: Self / Same As Patient Allergies No Known Allergies Allergy (Verified 03/30/24 09:26) HPI Comments Details: I had the privilege of seeing Marcus in follow-up of his hypertension and hyponatremia. 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 He has no nausea, vomiting, diarrhea, aspiration pneumonias, pedal edema, shortness of breath. He has no history of renal or liver failure. He denies any symptoms of Lea pain Marianne, weakness, altered mental status. He had stopped oral urea it while ago and continues to fluid restrict himself. His last serum sodium is normal. He feels well. All other systems were reviewed and were negative. [facility] Medical History (Updated 09/25/23 @ 10:58 by Chinedu Cevallos MD) FRANCINE (iron deficiency anemia) GERD (gastroesophageal reflux disease) Hyperlipidemia Hypertension History of renal cell cancer History of laryngeal cancer Surgical History History of bronchoscopy (~2017) History of left inguinal hernia repair (~2015) History of left nephrectomy (~2008) Social History Patient Tobacco Use Status: Former Tobacco user Years Smoked: (onset 16yo, 1-1.5ppd x 32yrs, quit 2002) Physical Exam Vital Signs: Last Vital Signs Pulse 65 03/30/24 09:24 BP 122/78 03/30/24 09:24 Pulse Ox 97 03/30/24 09:24 Oxygen Delivery Method Room Air 03/30/24 09:24 BMI result Body Mass Index 23.2 Const General: comfortable and no acute distress Orientation/consciousness: patient oriented x3 HEENT Head: Yes normocephalic Mouth: Normal oral and palatal mucosa present Eyes EOM: EOMs intact bilaterally Neck Neck: Yes supple Resp Auscultation: clear to auscultation bilaterally Cardio Jugular venous distension: no JVD Rate: regular rate GI Palpation (GI): Soft to palpation Auscultation: normal bowel sounds General: Yes no CVA tenderness Back/Spine/Pelvis Back: no CVA tenderness Skin General skin exam: no rashes or lesions noted Neuro General: patient oriented x3 and moves all extremities Extrem General: Yes no pedal edema Results Reviewed Nephrology Results: No Data to Display Assessment & Plan Assessment & Plan (1) Hypertension: Code(s): I10 - Essential (primary) hypertension Category: Medical Qualifiers: Hypertension type: primary hypertension Qualified Code(s): I10 - Essential (primary) hypertension Plan Grady had excess ADH with development of hyponatremia which was treated with oral urea. We have discontinued it and he remains on fluid restriction with stable serum sodium. He had stopped his antihypertensive medications and currently his blood pressure is at goal. His volume status is optimal. I did not make any other medication changes today. Follow-up blood work ordered and follow-up appointment given. Answered all questions. Orders: Orders Creatinine Today I10 - Essential (primary) hypertension Electrolytes Today I10 - Essential (primary) hypertension Blood Urea Nitrogen Today I10 - Essential (primary) hypertension Coding Level of Care Code Est Pt Level 4 (52861) Diagnoses Primary hypertension I10 Hypertension type: primary hypertension
== END 2024-03-30 09:51 | disposition home or self-care (01) ==
PROVIDERS: PCP Internal Medicine; Visit Provider Internal Medicine Nephrology
DX: I10 Essential (primary) hypertension (principal)
CPT/HCPCS: 99214

== ENCOUNTER → 2024-03-30 09:23 | Outpatient (BNVA) | payer MEDICARE, SELFPAY | PROVIDERS: PCP Internal Medicine; Visit Provider Internal Medicine Nephrology | DX: I10 Essential (primary) hypertension (principal) | CPT/HCPCS: 99212 ==

== ENCOUNTER 2024-08-31 10:53 | Outpatient (AMB) | payer MEDICARE, SELFPAY ==
[2024-08-31 10:56] VITALS: BP 132/80; PULSE 65; O2SAT 99; BMI 22.5
--- NOTE | 2024-08-31 10:56 | A.OFFVIS_ITS ---
Vital Signs 08/31/24 10:56 Height 5 ft 4 in Weight 131 lb 2.801 oz BMI 22.5 BP 132/80 Blood Pressure Location Rt brachial Position Sitting Pulse 65 Pulse Source Doppler Pulse Oximetry (%) 99 Oxygen Delivery Method Room Air Intake Visit Reasons: copd Allergies No Known Allergies Allergy (Verified 03/30/24 09:26) HPI HPI copd: Details: 69-year-old gentleman, former 25+ pack-year smoker, quit 1999, with underlying history of squamous cell carcinoma of the larynx, status post chemo radiotherapy at [facility] in 2000 with resolution, further complicated by dysphagia and aspiration risk resulting in right upper lobe pulmonary abscess previously, now resolved, followed for underlying COPD/emphysema, and pulmonary nodules.? Patient had another aspiration event around the beginning of 2022 requiring prolonged hospitalization in [place], now status post tracheostomy and gastr ostomy placement.? He continues to do well, he gets his tracheostomy changed in [place] every 6 months. He has been previously using Anoro and nebs with good control of his symptoms. Unfortunately recently Anoro is too expensive based on his insurance plan. He denies recent exacerbations. [facility] Medical History (Updated 09/25/23 @ 10:58 by Chinedu Cevallos MD) FRANCINE (iron deficiency anemia) GERD (gastroesophageal reflux disease) Hyperlipidemia Hypertension History of renal cell cancer History of laryngeal cancer Surgical History History of bronchoscopy (~2017) History of left inguinal hernia repair (~2015) History of left nephrectomy (~2008) Social History Patient Tobacco Use Status: Former Tobacco user Years Smoked: (onset 16yo, 1-1.5ppd x 32yrs, quit 2002) Review of Systems Const Denies daytime sleepiness, Denies excessive sweating, Denies fatigue, Denies fever(s), Denies lethargy, Denies malaise, Denies night sweats, Denies snoring and Denies weight loss Eyes Denies blurry vision and Denies itchy eyes ENT Denies nasal congestion, Denies post nasal drip, Denies sinus pain, Denies sinus pressure and Denies other ( Thrush) Card Denies chest pain, Denies pedal edema, Denies dyspnea, Denies orthopnea and Denies paroxysmal nocturnal dyspnea Resp Denies cough, Denies hemoptysis, Denies excessive phlegm production, Denies dyspnea, Denies snoring and Denies wheezing GI Denies abdominal pain and Denies heartburn Musc Denies myalgias, Denies arthralgias and Denies joint swelling Skin/Breast Denies rash Neuro Denies memory loss and Denies seizure-like activity Psych Denies abnormal sleep pattern, Denies anxiety and Denies memory loss Endo Denies excessive sweating, Denies fatigue and Denies heat intolerance Joel/Lymph Denies easy bruising Aller/Immun Denies itchy eyes, Denies seasonal rhinorrhea and Denies wheezing Physical Exam Vital Signs: Last Vital Signs Pulse 65 08/31/24 10:56 BP 132/80 08/31/24 10:56 Pulse Ox 99 08/31/24 10:56 Oxygen Delivery Method Room Air 08/31/24 10:56 BMI result Body Mass Index 22.5 Const General: no acute distress and alert Nutritional Appearance: not obese Orientation/consciousness: Other orientation findings ( oriented) HEENT Head: Yes atraumatic Eyes General: appearance normal, both eyes and all related structures Sclerae: sclerae normal EOM: EOMs intact bilaterally Neck Neck: Yes supple and Yes tracheostomy present Lymphatic: no lymphadenopathy noted Resp Effort & Inspection: normal respiratory effort and no use of accessory muscles Auscultation: clear to auscultation bilaterally Cardio Rate: regular rate Rhythm: regular rhythm Heart sounds: no gallops, no murmurs and no rubs Skin General skin exam: other ( warm) Extrem General: No clubbing, No cyanosis and No edema Assessment & Plan Assessment & Plan (1) Emphysema lung: Code(s): J43.9 - Emphysema, unspecified Category: Medical Plan: Worsening control as Anoro is too expensive, will try switching to Yupelri. Continue duo nebs. (2) Status post tracheostomy: Code(s): Z93.0 - Tracheostomy status Category: Medical Plan: Status post recent replacement in [place]. Coding Level of Care Code Est Pt Level 4 (88540) Diagnoses Emphysema lung J43.9 Status post tracheostomy Z93.0
== END 2024-08-31 11:09 | disposition home or self-care (01) ==
PROVIDERS: PCP Internal Medicine; Visit Provider Internal Medicine Pulmonary Disease
DX: J43.9 Emphysema, unspecified (principal); Z93.0 Tracheostomy status
CPT/HCPCS: 99214

== ENCOUNTER → 2024-08-31 10:53 | Outpatient (BNVA) | payer MEDICARE, SELFPAY | PROVIDERS: PCP Internal Medicine; Visit Provider Internal Medicine Pulmonary Disease | DX: J43.9 Emphysema, unspecified (principal); Z93.0 Tracheostomy status | CPT/HCPCS: 99212 ==

== ENCOUNTER 2024-11-02 10:43 | Outpatient (AMB) | payer MEDICARE, SELFPAY ==
--- NOTE | 2024-11-02 10:46 | HO.NEPHOV_ITS ---
Vital Signs 11/02/24 10:47 Height 5 ft 4 in Weight 133 lb 2 oz BMI 22.8 BP 114/80 Blood Pressure Location Lt brachial Position Sitting Intake Visit Reasons: 6M follow up/ LVM Resin Painter Required: No Accompanied by: Self / Same As Patient Allergies No Known Allergies Allergy (Verified 11/02/24 10:47) HPI Comments Details: I had the privilege of seeing Marcus in follow-up of his hypertension and hyponatremia. 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 He has no nausea, vomiting, diarrhea, aspiration pneumonias, pedal edema, shortness of breath. He has no history of renal or liver failure. He denies any symptoms of Lea pain Marianne, weakness, altered mental status. He had stopped oral urea it while ago and continues to fluid restrict himself. His last serum sodium is normal. He feels well. All other systems were reviewed and were negative. [facility] Medical History (Updated 11/02/24 @ 11:04 by Chinedu Cevallos MD) FRANCINE (iron deficiency anemia) GERD (gastroesophageal reflux disease) Hyperlipidemia Hypertension History of renal cell cancer History of laryngeal cancer Surgical History History of bronchoscopy (~2017) History of left inguinal hernia repair (~2015) History of left nephrectomy (~2008) Social History Patient Tobacco Use Status: Former Tobacco user Years Smoked: (onset 16yo, 1-1.5ppd x 32yrs, quit 2002) Review of Systems Const All systems reviewed & are unremarkable except as noted in HPI and below Physical Exam Vital Signs: Last Vital Signs BP 114/80 11/02/24 10:47 BMI result Body Mass Index 22.8 Results Reviewed Nephrology Results: No Data to Display Assessment & Plan Assessment & Plan (1) Hypertension: Code(s): I10 - Essential (primary) hypertension Category: Medical Qualifiers: Hypertension type: primary hypertension Qualified Code(s): I10 - Essential (primary) hypertension (2) Hyponatremia: Code(s): E87.1 - Hypo-osmolality and hyponatremia Category: Medical Plan Grady had excess ADH with development of hyponatremia which was treated with oral urea. We have discontinued it and he remains on fluid restriction with stable serum sodium. He had stopped his antihypertensive medications and currently his blood pressure is at goal. His volume status is optimal. I did not make any other medication changes today. Coding Level of Care Code Est Pt Level 4 (42425) Diagnoses Primary hypertension I10 Hypertension type: primary hypertension Hyponatremia E87.1
[2024-11-02 10:47] VITALS: BP 114/80; BMI 22.8
--- OUTSIDE RECORDS SUMMARY | 2024-11-02 11:51 | XMS_ITS | Clinical Summary ---
Author Organization [facility] Address [address] [facility] [facility] [place] [address] Phone Care Team Providers Care Aquatics Specialist Name Role Phone Arcenio Day MD Primary Care Provider Allergies No known active allergies Medications pantoprazole (PROTONIX) 40 MG EC tablet Take 40 mg by mouth in the morning and 40 mg in the evening. 10/26/2021 Active atorvastatin (LIPITOR) 40 MG tablet Take 40 mg by mouth 1 (one) time each day Active levothyroxine (SYNTHROID, LEVOTHROID) 75 MCG tablet Take 75 mcg by mouth in the morning and 75 mcg in the evening. Active Urea 15 g pack Take 1 Package by mouth 1 (one) time each day Active Nutritional Supplements (Ensure Active High Protein) liquid Take by mouth Active carvedilol (COREG) 12.5 MG tablet 01/19/2023 Active Active Problems Problem Noted Date Diagnosed Date Gastrostomy present 11/26/2022 Overview (03/10/2023): Last Assessment & Plan: Agree silver nitrate application three times weekly as recommended by wound care. Ordered to pharmacy. Called SHERRY Ordonez to relay. Increase protonix to 40mh bid. Tracheostomy present 10/16/2022 Pulmonary embolism 10/03/2022 Overview (03/10/2023): Last Assessment & Plan: Found to have subsegmental PEs and extensive DVTs in Rt common femoral, Rt soleal, and Lt gastroc. Trach in place, no additional O2 requirements. - Continue apixaban 5mg BID Anemia 09/23/2022 Overview (03/10/2023): Last Assessment & Plan: Longstanding history of anemia (since 2015) of unknown etiology, likely anemia of chronic inflammation and FRANCINE. [x] Completed IV iron sucrose 200mg x5 days. History of difficult intubation 09/23/2022 Hypothyroidism 09/23/2022 Overview (03/10/2023): Last Assessment & Plan: - Continue levothyroxine 50mcg daily Severe protein-calorie malnutrition 09/23/2022 Overview (03/10/2023): Last Assessment & Plan: Refill osmolite 1.2 @ 75 cc/hr. Syndrome of inappropriate vasopressin secretion 09/23/2022 Overview (03/10/2023): Last Assessment & Plan: Was on Urea prior to admission. - Continue Urea Respiratory failure 08/31/2022 Overview (03/10/2023): Last Assessment & Plan: Trach downsized to 4 cuffless Shiley on 09/25/22. - Appreciate Respiratory Therapy recommendations - Trach care per ENT/RT - NPO per ROLL COVERER. Nutrition via PEG. - Standard aspiration precautions - Continue DuoNebs 4x daily and Albuterolnebs PRN wheezing/dyspnea [x] home trach supplies/services delivered. 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 Hypo-osmolality and hyponatremia 11/12/2021 Stenosis of bilateral carotid arteries 9 History of hernia repair 06/23/2018 Left inguinal hernia 06/23/2018 Hypertension 06/19/2016 Resolved Problems Problem Noted Date Diagnosed Date Resolved Date Stricture of esophagus 02/01/202111/12 Bilateral partial vocal cord paralysis 07/19/2020 11/12/2021 Hyperlipidemia 06/19/2016 11/12/2021 Oropharyngeal dysphagia 06/19/2016/04/2022 Malignant neoplasm of larynx 05/10/2015 11/12/2021 Immunizations Name Administration Dates Next Due Influenza, Quadrivalent, With Preservative 06/22 Influenza, Unspecified 07/18/2020 Shingrix 06/22/2019,04/13/2019 Tdap 04/13/2021 Zoster 09/06/2016 Family History Medical History Relation Comments Heart disease Father Relation Status Comments Father Mother Social History Tobacco Use Types Packs/Day Years Used Date Smoking Tobacco: Former Smokeless Tobacco: Never Tobacco Cessation:Counseling Given: No Alcohol Use Standard Drinks/Week Comments Never 0 (1 standard drink = 0.6 oz pur e alcohol) Sex and Gender Information Value Date Recorded Sex Assigned at Not on file Legal Sex Male 9:18 AM EST Gender Identity Not on file Sexual Orientation Not on file Last Filed Vital Signs Vital Sign Reading Time Taken Comments Blood Pressure 110/72 03/10/2023 2:33 PM EDT Pulse 76 03/10/2023 2:33 PM EDT Temperature - - Respiratory Rate - - Oxygen Saturation - - Inhaled Oxygen Concentration - - Weight 56.2 kg (124 lb) 03/10/2023 2:33 PM EDT Height - - Body Mass Index - - Plan of Treatment Health Maintenance Due Date Last Done Comments Pneumococcal Vaccine: 65+ Years (1 of 2 - PCV) 1961 Colorectal Cancer Screening: Annual FOBT 2004 Colorectal Cancer Screening: Colonoscopy 2004 Colorectal Cancer Screening: Sigmoidoscopy 2004 Influenza Vaccine (#1) 2024 0, 06/22/2019 Hepatitis B Vaccine Aged Out No longe r eligible based on patient's age to complete this topic Insurance MEDICARE [facility] MEDICARE Care Teams Aquatics Specialist Relationship Specialty Start Date End Date Arcenio Day MD [address] [place] [address] PCP - General Internal Medicine 10/17/21
--- OUTSIDE RECORDS SUMMARY | 2024-11-02 11:51 | XMS_ITS | Encounter Summary ---
Author Organization [facility] Address [address] [place] [address] Phone Care Team Providers Care Laborer/Key Man Name Role Phone Arcenio Day MD Primary Care Provider + [phone] Encounter Details Date Type Department Care Team (Late st Contact Info) Description 12/10/2021 Telephone [facility] [address] [facility] [address] [place] [address] Mike Rodrigues DO [address] [place] [address] Social History Tobacco Use Types Packs/Day Years Used Date Smoking Tobacco: Former Smokeless Tobacco: Former Alcohol Use Standard Drinks/Week Comments Never 0 (1 standard drink = 0.6 oz pur e alcohol) Sex and Gender Information Value Date Recorded Sex Assigned at Not on file Legal Sex Male 9:18 AM EST Gender Identity Not on file Sexual Orientation Not on file documented as of this encounter Miscellaneous Notes * Telephone Encounter - Suzan Vitale - 12/10/2021 3:48 PM EDT Pt called he would like to have his labs done before his appt on 12/24/21. Please create and mail Thank you documented in this encounter Plan of Treatment Not on file documented as of this encounter Visit Diagnoses Not on filedocumented in this encounter Care Teams Laborer/Key Man Relationship Specialty Start Date End Date Arcenio Day MD [address] [place] [address] PCP - General Internal Medicine 10/17/21 documented as of this encounter
--- OUTSIDE RECORDS SUMMARY | 2024-11-02 11:51 | XMS_ITS | Clinical Summary ---
Author Organization [facility] it Address [address] [place] [address] Care Team Providers Care Jaw Skinner Name Role Phone Arcenio Day MD Primary Care Provider [phone] Encounters Date Type Department Care Team Description 09/22/2024 Telephone Gastroenterology - [address] [place] [address] [place] MD from Last 3 Months Surgical History Surgery Date Site/Laterality Comments HERNIA REPAIR PROCEDURE: IN REPAIR FIRST ABDOMINAL WALL HERNIA HERNIA REPAIR 04/16/2018 Left PROCEDURE: HISTORICAL HERNIA REPAIR/ING; COMMENT: left inguinal 04/16/18 Social History Tobacco Use Types Packs/Day Years Used Date Smoking Tobacco: Former Cigarettes Q uit: 09/15/2002 Smokeless Tobacco: Never Alcohol Use Standard Drinks/Week Comments No 0 (1 standard drink = 0.6 oz pur e alcohol) Sex and Gender Information Value Date Recorded Sex Assigned at Not on file Legal Sex Male 6:56 AM EST Gender Identity Not on file Sexual Orientation Not on file Obstetrics History Plan of Treatment Health Maintenance Due Date Last Done Comments DTaP,Tdap,and Td Vaccines (1 - Tdap) 1974 Pneumococcal Vaccine: 50+ Ye ars (1 of 1 - PCV) 2005 Zoster Vaccines (1 of 2) 2005 Abdominal Aortic Aneurysm (A AA) Screen 08/18/2022 Cholesterol Screening (Lipid Panel) 08/18/2022 Colorectal Cancer Screening: Colonoscopy 08/18/2022 Depression Screening 08/18/2022 Falls Risk Assessment 08/18/2022 Hepatitis C Screening 08/18/2022 Social Influencers of Health Screening 08/18/2022 COVID-19 Vaccine (2023-2 5 season) 2024 Influenza Vaccine (#1) 2024 RSV Immunization Patients 60 + Years Old (1 - 1-dose 75+ series) 2030 HIB Vaccines Aged Out No longer eligi ble based on patient's age to complete this topic HPV Vaccines Aged Out No longer eligi ble based on patient's age to complete this topic Hepatitis A Vaccines Aged Out No long er eligible based on patient's age to complete this topic Hepatitis B Vaccines Aged Out No long er eligible based on patient's age to complete this topic IPV Vaccines Aged Out No longer eligi ble based on patient's age to complete this topic MMR Vaccines Aged Out No longer eligi ble based on patient's age to complete this topic Meningococcal ACWY Vaccine Aged Out N o longer eligible based on patient's age to complete this topic Meningococcal B Vacine Aged Out No lo nger eligible based on patient's age to complete this topic RSV Immunization Patients Un lena 20 months Aged Out No longer eligible b ased on patient's age to complete this topic Varicella Vaccines Aged Out No longer eligible based on patient's age to complete this topic Care Teams Jaw Skinner Relationship Specialty Start Date End Date Arcenio Day MD PCP - General Internal Medicine 04/14/18
== END 2024-11-02 13:49 | disposition home or self-care (01) ==
PROVIDERS: PCP Internal Medicine; Visit Provider Internal Medicine Nephrology
DX: I10 Essential (primary) hypertension (principal); E87.1 Hypo-osmolality and hyponatremia
CPT/HCPCS: 99214

== ENCOUNTER → 2024-11-02 10:43 | Outpatient (BNVA) | payer MEDICARE, SELFPAY | PROVIDERS: PCP Internal Medicine; Visit Provider Internal Medicine Nephrology | DX: I10 Essential (primary) hypertension (principal); E87.1 Hypo-osmolality and hyponatremia | CPT/HCPCS: 99212 ==

== ENCOUNTER 2025-03-08 13:53 | Outpatient (AMB) | payer MEDICARE, SELFPAY ==
[2025-03-08 13:55] VITALS: BP 106/62; PULSE 69; O2SAT 96; BMI 22.0
--- NOTE | 2025-03-08 13:55 | MHC.OFFVIS ---
Vital Signs 03/08/25 13:55 Height 5 ft 4 in Weight 128 lb BMI 22.0 BP 106/62 Blood Pressure Location Rt brachial Position Sitting Pulse 69 Pulse Source Pulse Oximeter Pulse Oximetry (%) 96 Oxygen Delivery Method Room Air Intake Visit Reasons: COPD Allergies No Known Allergies Allergy (Verified 11/02/24 10:47) HPI HPI COPD: Details: 69-year-old gentleman, former 25+ pack-year smoker, quit 1999, with underlying history of squamous cell carcinoma of the larynx, status post chemo radiotherapy at [facility] in 2000 with resolution, further complicated by dysphagia and aspiration risk resulting in right upper lobe pulmonary abscess previously, now resolved, followed for underlying COPD/emphysema, and pulmonary nodules.? Patient had another aspiration event around the beginning of 2022 requiring prolonged hospitalization in [place], now status post tracheostomy and gastrostomy placement.? He continues to do well, he gets his tracheostomy changed in [place] every 6 months. He has been previously using Anoro and nebs with good control of his symptoms. Unfortunately recently Anoro is too expensive based on his insurance plan. He denies recent exacerbations. At the last office visit he has been started on Yupelri and duo nebs that a more affordable and provide reasonable control of his symptoms. [facility] Medical History (Updated 11/02/24 @ 11:04 by Chinedu Cevallos MD) FRANCINE (iron deficiency anemia) GERD (gastroesophageal reflux disease) Hyperlipidemia Hypertension History of renal cell cancer History of laryngeal cancer Surgical History History of bronchoscopy (~2017) History of left inguinal hernia repair (~2015) History of left nephrectomy (~2008) Social History Patient Tobacco Use Status: Former Tobacco user Years Smoked: (onset 16yo, 1-1.5ppd x 32yrs, quit 2002) Review of Systems Const Denies daytime sleepiness, Denies excessive sweating, Denies fatigue, Denies fever(s), Denies lethargy, Denies malaise, Denies night sweats, Denies snoring and Denies weight loss Eyes Denies blurry vision and Denies itchy eyes ENT Denies nasal congestion, Denies post nasal drip, Denies sinus pain, Denies sinus pressure and Denies other ( Thrush) Card Denies chest pain, Denies pedal edema, Denies dyspnea, Denies orthopnea and Denies paroxysmal nocturnal dyspnea Resp Denies cough, Denies hemoptysis, Denies excessive phlegm production, Denies dyspnea, Denies snoring and Denies wheezing GI Denies abdominal pain and Denies heartburn Musc Denies myalgias, Denies arthralgias and Denies joint swelling Skin/Breast Denies rash Neuro Denies memory loss and Denies seizure-like activity Psych Denies abnormal sleep pattern, Denies anxiety and Denies memory loss Endo Denies excessive sweating, Denies fatigue and Denies heat intolerance Joel/Lymph Denies easy bruising Aller/Immun Denies itchy eyes, Denies seasonal rhinorrhea and Denies wheezing Physical Exam Vital Signs: Last Vital Signs Pulse 69 03/08/25 13:55 BP 106/62 03/08/25 13:55 Pulse Ox 96 03/08/25 13:55 Oxygen Delivery Method Room Air 03/08/25 13:55 BMI result Body Mass Index 22.0 Const General: no acute distress and alert Nutritional Appearance: not obese Orientation/consciousness: Other orientation findings ( oriented) HEENT Head: Yes atraumatic Eyes General: appearance normal, both eyes and all related structures Sclerae: sclerae normal EOM: EOMs intact bilaterally Neck Neck: Yes supple and Yes tracheostomy present Lymphatic: no lymphadenopathy noted Resp Effort & Inspection: normal respiratory effort and no use of accessory muscles Auscultation: clear to auscultation bilaterally Cardio Rate: regular rate Rhythm: regular rhythm Heart sounds: no gallops, no murmurs and no rubs Skin General skin exam: other ( warm) Extrem General: No clubbing, No cyanosis and No edema Assessment & Plan Assessment & Plan (1) Emphysema lung: Code(s): J43.9 - Emphysema, unspecified Category: Medical Plan: Well controlled on Yupelri and duo nebs. Continue current regimen. (2) Status post tracheostomy: Code(s): Z93.0 - Tracheostomy status Category: Medical Plan: Continues with tracheostomy care at [place]. Coding Level of Care Code Est Pt Level 4 (02916) Diagnoses Emphysema lung J43.9 Status post tracheostomy Z93.0
== END 2025-03-08 14:09 | disposition home or self-care (01) ==
LOC: HO.HPS 13:54
PROVIDERS: PCP Internal Medicine; Visit Provider Internal Medicine Pulmonary Disease
DX: J43.9 Emphysema, unspecified (principal); Z93.0 Tracheostomy status
CPT/HCPCS: 99214

== ENCOUNTER → 2025-03-08 13:53 | Outpatient (BNVA) | payer MEDICARE, SELFPAY | PROVIDERS: PCP Internal Medicine; Visit Provider Internal Medicine Pulmonary Disease | DX: J43.9 Emphysema, unspecified (principal); Z93.0 Tracheostomy status | CPT/HCPCS: 99212 ==

== ENCOUNTER 2025-05-26 15:13 | Outpatient (AMB) | payer MEDICARE, SELFPAY ==
--- NOTE | 2025-05-26 15:18 | HO.NEPHOV ---
Vital Signs 05/26/25 15:21 Height 5 ft 4 in Weight 130 lb 4 oz BMI 22.4 BP 130/70 Blood Pressure Location Lt brachial Position Sitting Pulse 71 Pulse Source Pulse Oximeter Pulse Oximetry (%) 98 Oxygen Delivery Method Room Air Intake Visit Reasons: DX: Proteinuria-LVM Blemish Remover Required: No Accompanied by: Self / Same As Patient Allergies No Known Allergies Allergy (Verified 05/26/25 15:21) HPI Comments Details: I had the privilege of seeing Marcus for proteinuria on a backdrop of hypertension. 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 He has no nausea, vomiting, diarrhea, aspiration pneumonias, pedal edema, shortness of breath. He has no history of renal or liver failure. He denies any edema or hematuria. He takes PPI. He continues to fluid restrict himself. His last serum sodium is normal. He feels well. All other systems were reviewed and were negative. [facility] Medical History (Updated 05/26/25 @ 15:21 by Chinedu Cevallos MD) FRANCINE (iron deficiency anemia) GERD (gastroesophageal reflux disease) Hyperlipidemia Hypertension History of renal cell cancer History of laryngeal cancer Surgical History History of bronchoscopy (~2017) History of left inguinal hernia repair (~2015) History of left nephrectomy (~2008) Social History Patient Tobacco Use Status: Former Tobacco user Years Smoked: (onset 16yo, 1-1.5ppd x 32yrs, quit 2002) Review of Systems Const All systems reviewed & are unremarkable except as noted in HPI and below Physical Exam Const General: comfortable and no acute distress Orientation/consciousness: patient oriented x3 HEENT Head: Yes normocephalic Mouth: Normal oral and palatal mucosa present Eyes EOM: EOMs intact bilaterally Neck Neck: Yes supple Resp Auscultation: clear to auscultation bilaterally Cardio Jugular venous distension: no JVD Rate: regular rate GI Palpation (GI): Soft to palpation Auscultation: normal bowel sounds General: Yes no CVA tenderness Back/Spine/Pelvis Back: no CVA tenderness Skin General skin exam: no rashes or lesions noted Neuro General: patient oriented x3 and moves all extremities Extrem General: Yes no pedal edema Assessment & Plan Assessment & Plan (1) Hypertension: Code(s): I10 - Essential (primary) hypertension Category: Medical Qualifiers: Hypertension type: primary hypertension Qualified Code(s): I10 - Essential (primary) hypertension (2) Proteinuria: Code(s): R80.9 - Proteinuria, unspecified Category: Medical Qualifiers: Proteinuria type: other Qualified Code(s): R80.8 - Other proteinuria Plan Grady has H/O acquired solitary kidney and hypertension. He has H/O excess ADH with development of hyponatremia which was treated with oral urea. We have discontinued it and he remains on fluid restriction with stable serum sodium. currently his blood pressure is at goal on carvedilol. I have ordered some work up including 24 hour urine for protein. I shall switch him from carvedilol to ARB if he has proteinuria. I shall also investigate more if he has significant proteinuria. His volume status is optimal. I did not make any other medication changes today. F/U given Orders: Orders Immunofixation, Random Urine 1 Month I10 - Essential (primary) hypertension, R80.8 - Other proteinuria, Z90.5 - Acquired absence of kidney Protein, 24 Hr Urine Group 1 Month I10 - Essential (primary) hypertension, R80.8 - Other proteinuria, Z90.5 - Acquired absence of kidney Calcium 1 Month I10 - Essential (primary) hypertension, R80.8 - Other proteinuria, Z90.5 - Acquired absence of kidney Immunofixation Pnl, Serum 1 Month I10 - Essential (primary) hypertension, R80.8 - Other proteinuria, Z90.5 - Acquired absence of kidney Protein Creatinine Ratio, Ur 1 Month I10 - Essential (primary) hypertension, R80.8 - Other proteinuria, Z90.5 - Acquired absence of kidney Coding Level of Care Code Est Pt Level 4 (23846) Diagnoses Primary hypertension I10 Hypertension type: primary hypertension Other proteinuria R80.8 Proteinuria type: other
[2025-05-26 15:21] VITALS: BP 130/70; PULSE 71; O2SAT 98; BMI 22.4
--- OUTSIDE RECORDS SUMMARY | 2025-05-26 18:34 | XMS_ITS | Encounter Summary ---
Author Organization [facility] Address [address] [facility] [facility] [address] [place] [address] Phone Care Team Providers Care Sql Data Architect Name Role Phone Arcenio Day MD Primary Care Provider [phone] Jeffry Schwartz MD, DMD Unavailable [phone] Arcenio Day MD Unavailable [phone] Nan Quiles MD Primary Care Provider Marissa Huff MD Primary Care Provide r Nan Quiles MD Unavailable [phone] Marissa Huff MD Primary Care Provide r Arcenio Day MD Primary Care Provider + [phone] Encounter Details Date Type Department Care Team (Late st Contact Info) Description 09/08/2022 Procedure Pass [facility] Radiology [address] [place] [address] Social History Tobacco Use Types Packs/Day Years Used Date Smoking Tobacco: Former Cigarettes 0 09/15/1979 - 09/15/2004 Smokeless Tobacco: Never Alcohol Use Standard Drinks/Week Comments No 0 (1 standard drink = 0.6 oz pur e alcohol) Intimate Partner Violence Answer Date R ecorded Are you denied basic needs s uch as food, clothing, or medical care? No 09/05/2022 In the past 12 months have y ou been in a relationship with a person who hurts, threatens, or tries to control you? No 09/05/2022 Are you denied basic needs s uch as food, clothing, or medical care? No 09/05/2022 In the past 12 months have y ou been in a relationship with a person who hurts, threatens, or tries to control you? No 09/05/2022 Sex and Gender Information Value Date Recorded Sex Assigned at Not on file Legal Sex Male 5:12 PM EST Gender Identity Not on file Sexual Orientation Not on file documented as of this encounter Plan of Treatment Upcoming Encounters Date Type Department Care Team (Late st Contact Info) Description 08/25/2025 11:00 AM EST Office Visit [facility] [address] [place] [address] Jeffry Schwartz MD, DMD [address] [place], [place] [phone] [email or web address] as of this encounter Visit Diagnoses Not on filedocumented in this encounter Care Teams Sql Data Architect Relationship Specialty Start Date End Date Arcenio Day MD [address] [place] [address] PCP - General 01/20/15 10/08/22 Nan Quiles MD [address] [place] [address] [email or web address] PCP - General Internal Medicine 10/09/22 11/25/22 Marissa Huff MD [address] [place] [phone] [email or web address] PCP - General Internal Medicine 11/26/22 02/25/24 Marissa Huff MD [address] [place] [address] [email or web address] PCP - General Internal Medicine 02/26/24 09/13/24 Arcenio Day MD [address] [place] [address] PCP - General Internal Medicine 09/14/24 Jeffry Schwartz MD, DMD [address] [place] [address] [email or web address] 05/09/15 Arcenio Day MD [address] [place] [address] Referring Physician Internal Medicine 01/08/16 Nan Quiles MD [address] [place] [address] [email or web address] Insurance Assigned Provider 03/22/23 07/26/23 documented as of this encounter Additional Source Comments The information contained in this document represents components of the legal health record. It is not the complete legal health record.[facility]
--- OUTSIDE RECORDS SUMMARY | 2025-05-26 18:34 | XMS_ITS | Clinical Summary ---
Author Organization [facility] Address [address] [facility] [address] [place] [address] Phone Care Team Providers Care Contracting Officer Name Role Phone Arcenio Day MD Primary [...] Trach care per ENT/RT - NPO per LANGUAGE PATH. Nutrition via PEG. - Standard aspiration precautions [...] Malignant neoplasm of larynx 05/10/2015 11/12/2021 Immunizations Immunization Administration Dates Next Due Influenza, Quadrivalent, With [...] Due Date Last Done Comments Pneumococcal Vaccine: 50+ Years (1 of 2 - PCV) 1974 Colorectal Cancer Screening: Annual FOBT 2004 Colorectal Cancer Screening: Colonoscopy 2004 Colorectal Cancer Screening: Sigmoidoscopy 2004 Influenza Vaccine (#1) 2025 0, 06/22/2019 Hepatitis B Vaccine Aged Out No longe r eligible based on patient's age to complete this topic Insurance Medicare [facility] Medicare Care Teams Contracting Officer Relationship Specialty Start Date End Date Arcenio Day MD [address] [place] [address] PCP - General Internal Medicine 10/17/21
--- OUTSIDE RECORDS SUMMARY | 2025-05-26 18:34 | XMS_ITS | Encounter Summary ---
Author Organization [facility] Address [address] [place] [address] Phone Care Team Providers Care Hardware Design Engineer Name Role Phone Arcenio Day MD Primary Care Provider + [phone] Encounter Details Date Type Department Care Team (Late st Contact Info) Description 12/10/2021 Telephone [facility] [address] [facility] [address] [place] [address] Mike Rodrigues DO [address] [place] [address] Social History Tobacco Use Types Packs/Day Years [...] on filedocumented in this encounter Care Teams Hardware Design Engineer Relationship Specialty Start Date End Date Arcenio Day MD [address] [place] [address] PCP - General Internal Medicine 10/17/21 documented as of this encounter
--- OUTSIDE RECORDS SUMMARY | 2025-05-26 18:34 | XMS_ITS | Encounter Summary ---
Author Organization [facility] Address [address] [place] [address] [place] [address] Phone Care Team Providers Care Securities Clerk Name Role Phone Arcenio Day MD Primary Care Provider [phone] Jeffry Schwartz MD, DMD Unavailable [phone] Arcenio Day MD Unavailable [phone] Nan Quiles MD Primary Care Provider Marissa Huff MD Primary Care Provide r Nan Quiles MD Unavailable [phone] Marissa Huff MD Primary Care Provide r Arcenio Day MD Primary Care Provider + [phone] Encounter Details Date Type Department Care Team (Late st Contact Info) Description 08/30/2022 Procedure Pass [facility] Periop [address] [place] [address] Social History Tobacco Use Types Packs/Day Years [...] Visit [facility], [facility] [place] [address] [place] [address], [address] [place] [address] Jeffry Schwartz MD, DMD [address] [place] [address] [email or web address] documented as of this encounter Visit Diagnoses Not on filedocumented in this encounter Care Teams Securities Clerk Relationship Specialty Start Date End Date Arcenio Day MD [address] [place] [address] PCP - General 01/20/15 10/08/22 Nan Quiles MD [address] [place] [phone] [email or web address] PCP - General Internal Medicine 10/09/22 11/25/22 Marissa Huff MD [address] [place] [phone] [email or web address] PCP - General Internal Medicine 11/26/22 02/25/24 Marissa Huff MD [address] [place] [address] [email or web address] PCP - General Internal Medicine 02/26/24 09/13/24 Arcenio Day MD [address] [place] [address] PCP - General Internal Medicine 09/14/24 Jeffry Schwartz MD, DMD [address] [place] [address] [email or web address] 05/09/15 Arcenio Day MD [address] [place] [address] Referring Physician Internal Medicine 01/08/16 Nan Quiles MD [address] [place] [phone] [email or web address] Insurance Assigned Provider 03/22/23 07/26/23 documented as of this encounter Additional Source Comments The information contained in this document represents components of the legal health record. It is not the complete legal health record.[facility]
--- OUTSIDE RECORDS SUMMARY | 2025-05-26 18:34 | XMS_ITS | Encounter Summary ---
Author Organization [facility] Address [address] [place] [address] [place] [address] Phone Care Team Providers Care Drafter Structural Name Role Phone Arcenio Day MD Primary Care Provider [phone] Jeffry Schwartz MD, DMD Unavailable [phone] Arcenio Day MD Unavailable [phone] Nan Quiles MD Primary Care Provider Marissa Huff MD Primary Care Provide r Nan Quiles MD Unavailable [phone] Marissa Huff MD Primary Care Provide r Arcenio Day MD Primary Care Provider + [phone] Encounter Details Date Type Department Care Team (Late st Contact Info) Description 03/02/2021 Procedure Pass [facility] Periop [address] [place] [address] Social History Tobacco Use Types Packs/Day Years [...] Head and Neck Oncology, [facility] [place] [address] [place] [address], [address] [place] [address] Jeffry Schwartz MD, DMD [address] [place] [phone] [email or web address] documented as of this encounter Visit Diagnoses Not on filedocumented in this encounter Care Teams Drafter Structural Relationship Specialty Start Date End Date Arcenio Day MD [address] [place] [address] PCP - General 01/20/15 10/08/22 Nan Quiles MD [address] [place] [phone] [email or web address] PCP - General Internal Medicine 10/09/22 11/25/22 Marissa Huff MD [address] [place] [phone] [email or web address] PCP - General Internal Medicine 11/26/22 02/25/24 Marissa Huff MD [address] [place] [address] [email or web address] PCP - General Internal Medicine 02/26/24 09/13/24 Arcenio Day MD [address] [place] [address] PCP - General Internal Medicine 09/14/24 Jeffry Schwartz MD, DMD [address] [place] [address] [email or web address] 05/09/15 Arcenio Day MD [address] [place] [address] Referring Physician Internal Medicine 01/08/16 Nan Quiles MD [address] [place] [phone] [email or web address] Insurance Assigned Provider 03/22/23 07/26/23 documented as of this encounter Additional Source Comments The information contained in this document represents components of the legal health record. It is not the complete legal health record.[facility]
--- OUTSIDE RECORDS SUMMARY | 2025-05-26 18:34 | XMS_ITS | Encounter Summary ---
Author Organization [facility] Address [address] [facility] [address] [place] [address] Phone Care Team Providers Care Case Loader Operator Name Role Phone Arcenio Day MD Primary Care Provider [phone] Jeffry Schwartz MD, DMD Unavailable [phone] Arcenio Day MD Unavailable [phone] Nan Quiles MD Primary Care Provider Marissa Huff MD Primary Care Provide r Nan Quiles MD Unavailable [phone] Marissa Huff MD Primary Care Provide r Arcenio Day MD Primary Care Provider + [phone] Encounter Details Date Type Department Care Team (Late st Contact Info) Description 09/10/2022 Procedure Pass [facility] Periop [address] [place] [address] Social History Tobacco Use Types Packs/Day Years [...] Head and Neck Oncology, [facility] [place] [address] [place] [address], [address] [place] [address] Jeffry Schwartz MD, DMD [address] [place] [address] [email or web address] documented as of this encounter Visit Diagnoses Not on filedocumented in this encounter Care Teams Case Loader Operator Relationship Specialty Start Date End Date Arcenio Day MD [address] [place] [address] PCP - General 01/20/15 10/08/22 Nan Quiles MD [address] [place] [phone] [email or web address] PCP - General Internal Medicine 10/09/22 11/25/22 Marissa Huff MD [address] [place] [phone] [email or web address] PCP - General Internal Medicine 11/26/22 02/25/24 Marissa Huff MD [address] [place] [address] [email or web address] PCP - General Internal Medicine 02/26/24 09/13/24 Arcenio Day MD [address] [place] [address] PCP - General Internal Medicine 09/14/24 Jeffry Schwartz MD, DMD [address] [place] [address] [email or web address] 05/09/15 Arcenio Day MD [address] [place] [address] Referring Physician Internal Medicine 01/08/16 Nan Quiles MD [address] [place] [address] [email or web address] Insurance Assigned Provider 03/22/23 07/26/23 documented as of this encounter Additional Source Comments The information contained in this document represents components of the legal health record. It is not the complete legal health record.[facility]
--- OUTSIDE RECORDS SUMMARY | 2025-05-26 18:34 | XMS_ITS | Encounter Summary ---
Author Organization [facility] Address [address] [facility] [address] [place] [address] Phone Care Team Providers Care Press Technician Name Role Phone Arcenio Day MD Primary Care Provider [phone] Jeffry Schwartz MD, DMD Unavailable [phone] Arcenio Day MD Unavailable [phone] Nan Quiles MD Primary Care Provider Marissa Huff MD Primary Care Provide r Nan Quiles MD Unavailable [phone] Marissa Huff MD Primary Care Provide r Arcenio Day MD Primary Care Provider + [phone] Encounter Details Date Type Department Care Team (Late st Contact Info) Description 08/31/2022 Procedure Pass [facility] [address] [place] [address] Social History Tobacco Use Types Packs/Day Years [...] [facility], [facility] [place] [address] [place] [address], 11[address] [place] [address] Jeffry Schwartz MD, DMD [address] [place] [address] [email or web address] documented as of this encounter Visit Diagnoses Not on filedocumented in this encounter Care Teams Press Technician Relationship Specialty Start Date End Date Arcenio Day MD [address] [place] [address] PCP - General 01/20/15 10/08/22 Nan Quiles MD [address] [place] [phone] [email or web address] PCP - General Internal Medicine 10/09/22 11/25/22 Marissa Huff MD [address] [place] [phone] [email or web address] PCP - General Internal Medicine 11/26/22 02/25/24 Marissa Huff MD [address] [place] [phone] [email or web address] PCP - General Internal Medicine 02/26/24 09/13/24 Arcenio Day MD [address] [place] [address] PCP - General Internal Medicine 09/14/24 Jeffry Schwartz MD, DMD [address] [place] [address] [email or web address] 05/09/15 Arcenio Day MD [address] [place] [address] Referring Physician Internal Medicine 01/08/16 Nan Quiles MD [address] [place] [phone] [email or web address] Insurance Assigned Provider 03/22/23 07/26/23 documented as of this encounter Additional Source Comments The information contained in this document represents components of the legal health record. It is not the complete legal health record.[facility]
--- OUTSIDE RECORDS SUMMARY | 2025-05-26 18:34 | XMS_ITS ---
Author Name [facility] Organization Unknown Encounters Encounter Type Encounter Reason Primary Diagnosis Location Date Ambulatory ROUTINE Other tear of me dial meniscus, current injury, right knee, initial encounter [facility] 08/14/2023 Care Team Organization Name Specialty Phone Email Start Date End Da te [facility] 202208/14/2023 [facility] 202202/04/2025
--- OUTSIDE RECORDS SUMMARY | 2025-05-26 18:34 | XMS_ITS | Encounter Summary ---
Author Organization [facility] Address [address] [place] [address] Phone Care Team Providers Care Lens Generating Machine Tender Name Role Phone Arcenio Day MD Primary Care Provider [phone] Jeffry Schwartz MD, DMD Unavailable [phone] Arcenio Day MD Unavailable [phone] Nan Quiles MD Primary Care Provider Marissa Huff MD Primary Care Provide r Nan Quiles MD Unavailable [phone] Marissa Huff MD Primary Care Provide r Arcenio Day MD Primary Care Provider [phone] Encounter Details Date Type Department Care Team (Late st Contact Info) Description 08/05/2022 Telephone [facility], [facility] [place] [address] [place] [address], 11th [place] [address] Jeffry Schwartz MD, DMD [address] [place] [address] [email or web address] Social History Tobacco Use Types Packs/Day Years [...] [facility], [facility] [facility] [place] [address] [place] [address], 11th [place] [address] Jeffry Schwartz MD, [place] [phone] [email or web address] documented as of this encounter Visit Diagnoses Not on filedocumented in this encounter Care Teams Lens Generating Machine Tender Relationship Specialty Start Date End Date Arcenio Day MD [address] [place] [address] PCP - General 01/20/15 10/08/22 Nan Quiles MD [address] [place] [phone] [email or web address] PCP - General Internal Medicine 10/09/22 11/25/22 Marissa Huff MD [address] [place] [phone] [email or web address] PCP - General Internal Medicine 11/26/22 02/25/24 Marissa Huff MD [address] [place] [address] [email or web address] PCP - General Internal Medicine 02/26/24 09/13/24 Arcenio Day MD [address] [place] [address] PCP - General Internal Medicine 09/14/24 Jeffry Schwartz MD, DMD [address] [place] [address] [email or web address] 05/09/15 Arcenio Day MD [address] [place] [address] Referring Physician Internal Medicine 01/08/16 Nan Quiles MD [address] [place] [phone] [email or web address] Insurance Assigned Provider 03/22/23 07/26/23 documented as of this encounter Additional Source Comments The information contained in this document represents components of the legal health record. It is not the complete legal health record.[facility]
--- OUTSIDE RECORDS SUMMARY | 2025-05-26 18:34 | XMS_ITS | Encounter Summary ---
Author Organization [facility] Address [address] [facility] [address] [place] [address] Phone Care Team Providers Care Metal Engraver Name Role Phone Arcenio Day MD Primary Care Provider [phone] Jeffry Schwartz MD, DMD Unavailable [phone] Arcenio Day MD Unavailable [phone] Nan Quiles MD Primary Care Provider Marissa Huff MD Primary Care Provide r Nan Quiles MD Unavailable [phone] Marissa Huff MD Primary Care Provide r Arcenio Day MD Primary Care Provider + [phone] Encounter Details Date Type Department Care Team (Late st Contact Info) Description 09/20/2022 Procedure Pass [facility] Periop [address] [place] [address] Social History Tobacco Use Types Packs/Day Years [...] [facility], [facility] [place] [address] [place] [address], 11[address] [place] [address] Jeffry Schwartz MD, DMD [address] [place] [address] [email or web address] documented as of this encounter Visit Diagnoses Not on filedocumented in this encounter Care Teams Metal Engraver Relationship Specialty Start Date End Date Arcenio Day MD [address] [place] [address] PCP - General 01/20/15 10/08/22 Nan Quiles MD [address] [place] [phone] [email or web address] PCP - General Internal Medicine 10/09/22 11/25/22 Marissa Huff MD [address] [place] [phone] [email or web address] PCP - General Internal Medicine 11/26/22 02/25/24 Marissa Huff MD [address] [place] [phone] [email or web address] PCP - General Internal Medicine 02/26/24 09/13/24 Arcenio Day MD [address] [place] [address] PCP - General Internal Medicine 09/14/24 Jeffry Schwartz MD, DMD [address] [place] [address] [email or web address] 05/09/15 Arcenio Day MD [address] [place] [address] Referring Physician Internal Medicine 01/08/16 Nan Quiles MD [address] [place] [address] [email or web address] Insurance Assigned Provider 03/22/23 07/26/23 documented as of this encounter Additional Source Comments The information contained in this document represents components of the legal health record. It is not the complete legal health record.[facility]
--- OUTSIDE RECORDS SUMMARY | 2025-05-26 18:34 | XMS_ITS | Encounter Summary ---
Author Organization [facility] Address [address] [place] [address] Phone Care Team Providers Care Assembler Metal Furniture Name Role Phone Arcenio Day MD Primary Care Provider [phone] Jeffry Schwartz MD, DMD Unavailable [phone] Arcenio Day MD Unavailable [phone] Nan Quiles MD Primary Care Provider Marissa Huff MD Primary Care Provide r Nan Quiles MD Unavailable [phone] Marissa Huff MD Primary Care Provide r Arcenio Day MD Primary Care Provider [phone] Encounter Details Date Type Department Care Team (Latest Contact Info) Description 02/01/2021 Prep for Surgery [facility], [facility] [facility] [place] [address] [place] [address], 11[address] [place] [address] Jeffry Schwartz MD, DMD [address] [place] [address] [email or web address] Oropharyngeal dysphagia (Primary Dx); Esophageal stricture Social History Tobacco Use Types Packs/Day Years [...] [facility], [facility] [place] [address] [place] [address], 11[address] [place] [address] Jeffry Schwartz MD, DMD [address] [place] [phone] [email or web address] documented as of this encounter Visit Diagnoses Diagnosis Oropharyngeal dysphagia- Primary Dysphagia, oropharyngeal phase Esophageal stricture Stricture and stenosis of esophagus documented in this encounter Care Teams Assembler Metal Furniture Relationship Specialty Start Date End Date Arcenio Day MD [address] [place] [address] PCP - General 01/20/15 10/08/22 Nan Quiles MD 1 [place] [phone] [email or web address] PCP - General Internal Medicine 10/09/22 11/25/22 Marissa Huff MD 1 [place] [address] [email or web address] PCP - General Internal Medicine 11/26/22 02/25/24 Marissa Huff MD 1 [place] [address] [email or web address] PCP - General Internal Medicine 02/26/24 09/13/24 Arcenio Day MD [address] [place] [address] PCP - General Internal Medicine 09/14/24 Jeffry Schwartz MD, DMD [address] [place] [address] [email or web address] 05/09/15 Arcenio Day MD [address] [place] [address] Referring Physician Internal Medicine 01/08/16 Nan Quiles MD [address] [place] [phone] [email or web address] Insurance Assigned Provider 03/22/23 07/26/23 documented as of this encounter Additional Source Comments The information contained in this document represents components of the legal health record. It is not the complete legal health record.[facility]
--- OUTSIDE RECORDS SUMMARY | 2025-05-26 18:34 | XMS_ITS | Clinical Summary ---
Author Organization [facility] Address [address] [facility] [address] [place] [address] Phone Care Team Providers Care Seed And Fertilizer Specialist Name Role Phone Jeffry Schwartz MD, DMD Unavailable [phone] Arcenio Day MD Unavailable [phone] Arcenio Day MD Primary Care Provider Allergies No known active allergies Medications nebulizer and compressor Rafaela Please dispense one. 1 each 3 Active sucralfate (CARAFATE) 1 gram tablet 1 tablet (1 g total) by Gastrostomy Tube route 4 (four) times a day. 120 tablet 3 Active atorvastatin (LIPITOR) 40 MG tablet 1 tablet (40 mg total) by Gastrostomy Tube route daily. 90 tablet 3 3 Active levothyroxine (SYNTHROID, LEVOTHROID) 50 MCG tablet 1 tablet (50 mcg total) by Gastrostomy Tube route daily. 90 tablet 3 3 Active urea (URE-NA) 15 gram PwPk packet 15 g by Gastrostomy Tube route daily. 30 packet 3 Active sennosides 8.8 mg/5 mL Syrp Take 5 mL (8.8 mg total) by mouth nightly at bedtime as needed. 60 mL 2 3 Active ferrous sulfate 325 mg (65 mg cocopah iron) tablet 1 tablet (325 mg total) by Gastrostomy Tube route every other day. 30 tablet 3 Active carvedilol (COREG) 12.5 MG tablet 1 tablet (12.5 mg total) by Nasogastric Tube route 2 (two) times a day. 180 tablet 3 3 Active pantoprazole (PROTONIX) 40 MG tablet Take 1 tablet (40 mg total) by mouth 2 (two) times a day. 90 tablet 1 3 Active nutritional supplements 0.06 gram-1.2 kcal/mL LiqdIndications: Severe protein-calorie malnutrition 1,575 mL by Gastrostomy Tube route daily. 67632 mL 3 Active Active Problems Problem Noted Date Diagnosed Date Feeding by G-tube 11/26/2022 Assessment & Plan (11/26/2022 4:20 PM EDT): Agree silver nitrate application three times weekly as recommended by wound care. Ordered to pharmacy. Called SHERRY Ordonez to relay. Increase protonix to 40mh bid. 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 Trach in place, no additional O2 requirements. - Continue apixaban 5mg BID Hypothyroidism 09/23/2022 Assessment & Plan (10/03/2022 12:48 PM EST): - Continue levothyroxine 50mcg daily Anemia 09/23/2022 Assessment & Plan (10/03/2022 12:48 PM EST): Longstanding history of anemia (since 2016) of unknown etiology, likely anemia of chronic inflammation and FRANCINE. [x] Completed IV iron sucrose 200mg x5 days. SIADH (syndrome of inappropriate ADH production) 09/23/2022 Assessment & Plan (10/03/2022 12:46 PM EST): Was on Urea prior to admission. - Continue Urea Severe protein-calorie malnutrition 09/23/2022 Assessment & Plan (11/26/2022 4:19 PM EDT): Refill osmolite 1.2 @ 75 cc/hr. 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 Limited PO intake resulting in significant weight loss over time. PEG placed 09/10/22. - Appreciate Nutrition recommendations - Daily weights - NPO per CUSTOM MILLER - Continue TF via PEG History of difficult intubation 09/23/2022 Respiratory failure 08/31/2022 Assessment & Plan (10/04/2022 2:32 PM EST): Trach downsized to 4 cuffless Shiley on 09/25/22. - Appreciate Respiratory Therapy recommendations - Trach care per ENT/RT - NPO per CUSTOM MILLER. Nutrition via PEG. - Standard aspiration precautions - Continue DuoNebs 4x daily and Albuterolnebs PRN wheezing/dyspnea [x] home trach supplies/services delivered. 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 H/o smoking for 25 years, but quit 17 years ago. Per previous notes, he developed bilateral tinnitus following chemotherapy. - Call Dr. Schwartz's office to reschedule sooner than July Immunizations Immunization Administration Dates Next Due Influenza High-Dose Quadrivalent Preservative Fr ee IM 07/18/2020 Influenza Quadrivalent w/ Preservative IM 2018 Tdap 04/13/2021 Zoster live 09/06/2016 Zoster recombinant 06/22/2019,04/13/2019 Family History Medical History Relation Comments Heart disease Father Lung cancer Mother Relation Status Comments Father Mother Social History Tobacco Use Types Packs/Day Years Used Date Smoking Tobacco: Former Cigarettes 0 09/15/1979 - 09/15/2004 Smokeless Tobacco: Never Tobacco Cessation:Counseling Given: Not Answered Alcohol Use Standard Drinks/Week Comments No 0 (1 standard drink = 0.6 oz pur e alcohol) Home Health Assessment: Transportation Answer Date Recorded Lack of Transportation (Medical) No 12/03/2022 Lack of Transportation (Non-Medical) No 12/03/2022 Patient Unable or Declines to Respond No 12/03/2022 Education Answer Date Recorded Are you interested in more education? Not on pal e 01/14/2023 Are you concerned about learning? Not on file 01/14/2023 No 01/14/2023 No 01/14/2023 Digital Access Answer Date Recorded No 02/08/2023 No 02/08/2023 No 02/08/2023 Reliable internet access at home? Not on file 02/08/2023 Device with a working camera? Not on file Intimate Partner Violence Answer Date R ecorded [...] Sign Reading Time Taken Comments Blood Pressure 150/74 08/25/2024 10:57 AM EST Pulse 67 08/25/2024 10:57 AM EST Temperature 36.5 C (97.7 F) 08/25/2024 10:56 AM EST Respiratory Rate 18 08/25/2024 10:5 7 AM EST Oxygen Saturation 99% 08/25/2024 10: 57 AM EST Inhaled Oxygen Concentration 30% 10/05/2022 8 :57 AM EST Weight 58.8 kg (129 lb 10.1 oz) 024 10:57 AM EST Height 160.9 cm (5' 3.35 ) 08/25/2024 1 0:57 AM EST Body Mass Index 22.71 08/25/2024 10:57 AM EST Plan of Treatment Upcoming Encounters Date Type Department Care Team (Late st Contact Info) Description 08/25/2025 11:00 AM EST Office Visit [facility], [facility] [place] [address] [place] [address], 11[address] [place] [address] Jeffry Schwartz MD, [place] [address] [email or web address] Health Maintenance Due Date Last Done Comments DEPRESSION SCREENING 1967 SMOKING Hx and SMOKELESS TOBACCO SCREENING 1968 PNEUMOCOCCAL VACCINES (50+ years) (1 of 2 - PCV) 1974 COLOGUARD 2000 COLONOSCOPY 2000 COLORECTAL CANCER SCREENING 2000 FIT TEST 2000 FOBT 2000 SIGMOIDOSCOPY 2000 VIRTUAL COLONOSCOPY 2000 ABDOMINAL AORTIC ANEURYSM (AAA) SCREENING 2020 TSH LEVEL 10/30/2023 10/30/2022, 09/03/2022 COVID-19 VACCINE ( season) 2025 07/08/2024, 06/27/2023, 07/30/2022, Additional history exists BLOOD PRESSURE 02/23/2025 08/25/2024 INFLUENZA VACCINE (#1) 2025 4, 06/27/2023, 07/18/2020, Additional history exists RSV VACCINE (1 - 1-dose 75+ series) 2030 Adult Td,Tdap Booster 04/13/2031 04/13/2021 ZOSTER VACCINES Completed 06/22/2019, 03/17, 09/06/2016 HEPATITIS C SCREENING Completed 10/30/2022, 023 HEPATITIS A VACCINES Aged Out No long er eligible based on patient's age to complete this topic HIB VACCINES Aged Out No longer eligi ble based on patient's age to complete this topic MENINGOCOCCAL VACCINES (ACWY) Aged Out No longer eligible based on patient's age to complete this topic MENINGOCOCCAL VACCINES (B) Aged Out N o longer eligible based on patient's age to complete this topic Medical Devices Not on file Procedures Procedure Name Priority Date/Time Associated Diagnosis Comments HEPATITIS C ANTIBODY, QUALITATIVE Routine 10/30/2022 2:33 PM EST Need for hepatitis C screening test TSH Routine 10/30/2022 2:33 PM EST Acquired hypothyroidism from Last 3 Months or Most Recently Relevant to Health Maintenance Results * Hepatitis C antibody, qualitative (10/30/2022 2:33 PM EST) HCV Nonreactive Nonreactive [facility] Comment: Blood 10/30/2022 2:33 PM EST 10/30/2022 2:36 PM EST us Nan Quiles MD LAB BLOOD ORDERABLES Fi nal Result Performing Organization Address City/State/[facility] Co de Phone Number [facility] [address] [place] [phone] * TSH (10/30/2022 2:33 PM EST) TSH 2.66 0.50 - 5.70 uIU/mL [facility] Blood 10/30/2022 2:33 PM EST 10/30/2022 2:36 PM EST us Nan Quiles MD LAB BLOOD ORDERABLES nal Result Performing Organization Address City/State/[facility] Co de Phone Number [facility] [address] [place] [phone] from Last 3 Months or Most Recently Relevant to Health Maintenance Insurance MEDICARE PART A & B [employer] SUPPLEMENT MEDICARE PART A & B [employer] SUPPLEMENT MEDICARE PART A & B [employer] SUPPLEMENT MEDICARE PART A & B MEDICARE PART A & B MEDICARE PART A & B [employer]EX SUPPLEMENT MEDICARE PART A & B [employer] SUPPLEMENT MEDICARE PART A & B MEDICARE PART A & B [facility] MEDEX SUPPLEMENT Advance Directives For more information, please contact: [phone] (9AM - 5PM [facility], Friday-Friday) Documents on File Type Date Recorded Patient Metal Furnace Operator Expl anation Advance Directive - Non Epic LMR 01/31/2010 12:00 AM * Full Code (Latest Code Status on File) Date Activated Date Inactivated Comments 09/01/2022 2:05 AM Question Answer Comments Code Status Confirmed With: Family Code Status Communicated To: Inpatient Attending Care Teams Seed And Fertilizer Specialist Relationship Specialty Start Date End Date Arcenio Day MD [address] [place] [address] PCP - General Internal Medicine 09/14/24 Jeffry Schwartz MD, DMD [email or web address] [email or web address] 05/09/15 Arcenio Day MD [address] [place] [address] Referring Physician Internal Medicine 01/08/16 Additional Source Comments The information contained in this document represents components of the legal health record. It is not the complete legal health record.[facility]
--- OUTSIDE RECORDS SUMMARY | 2025-05-26 18:34 | XMS_ITS | Encounter Summary ---
Author Organization [facility] Address [address] [place] [address] Phone Care Team Providers Care Java Developer Consultant Name Role Phone Arcenio Day MD Primary Care Provider [phone] Jeffry Schwartz MD, DMD Unavailable [phone] Arcenio Day MD Unavailable [phone] Nan Quiles MD Primary Care Provider Marissa Huff MD Primary Care Provide r Nan Quiles MD Unavailable [phone] Marissa Huff MD Primary Care Provide r Arcenio Day MD Primary Care Provider + [phone] Encounter Details Date Type Department Care Team (Late st Contact Info) Description 09/06/2022 Procedure Pass [facility] Periop [address] [place] [address] Social History Tobacco Use Types Packs/Day Years [...] on file documented as of this encounter Functional Status * Calculated C-SSRS Risk Score (Lifetime/Recent) Answer Date of Assessment Author No Risk Indicated 09/06/2022 7:07 PM Earnest Bahena RN * [place] Suicide Severity Rating Scale (Screener/Recent Self-Report) Question Answer Date of Assessment Author 1. Wish to be (Past 1 Month) No 09/06/2022 7:07 PM Earnest Bahena RN 2. Non-Specific Active Suicidal Thoughts (Past 1 Month) No 09/06/2022 7:07 PM Earnest Bahena RN 6. Suicidal Behavior (Lifetime) No 09/06/2022 7:07 PM Earnest Bahena RN documented as of this encounter Plan of Treatment Upcoming Encounters Date Type Department Care Team (Late st Contact Info) Description 08/25/2025 11:00 AM EST Office [facility] [address] [place] [address], [address] [place] [address] Jeffry Schwartz MD, DMD [address] [place] [address] [email or web address] documented as of this encounter Visit Diagnoses Not on filedocumented in this encounter Care Teams Java Developer Consultant Relationship Specialty Start Date End Date Arcenio Day MD [address] [place] [address] PCP - General 01/20/15 10/08/22 Nan Quiles MD [address] [place] [phone] [email or web address] PCP - General Internal Medicine 10/09/22 11/25/22 Marissa Huff MD [address] [place] [phone] [email or web address] PCP - General Internal Medicine 11/26/22 02/25/24 Marissa Huff MD [address] [place] [phone] [email or web address] PCP - General Internal Medicine 02/26/24 09/13/24 Arcenio Day MD [address] [place] [address] PCP - General Internal Medicine 09/14/24 Jeffry Schwartz MD, DMD [address] [place] [address] [email or web address] 05/09/15 Arcenio Day MD [address] [place] [address] Referring Physician Internal Medicine 01/08/16 Nan Quiles MD [address] [place] [phone] [email or web address] Insurance Assigned Provider 03/22/23 07/26/23 documented as of this encounter Additional Source Comments The information contained in this document represents components of the legal health record. It is not the complete legal health record.[facility]
--- OUTSIDE RECORDS SUMMARY | 2025-05-26 18:34 | XMS_ITS | Encounter Summary ---
Author Organization [facility] Address [address] [place] [address] Phone Care Team Providers Care Nursing Clinical Director Name Role Phone Arcenio Day MD Primary Care Provider [phone] Jeffry Schwartz MD, DMD Unavailable [phone] Arcenio Day MD Unavailable [phone] Nan Quiles MD Primary Care Provider Marissa Huff MD Primary Care Provide r Nan Quiles MD Unavailable [phone] Marissa Huff MD Primary Care Provide r Arcenio Day MD Primary Care Provider + [phone] Encounter Details Date Type Department Care Team (Late st Contact Info) Description 09/05/2022 Procedure Pass [facility] [address] [place] [address] Social History Tobacco Use Types Packs/Day Years [...] 09/06/2022 7:07 PM Earnest Bahena RN * [place] Suicide Severity Rating Scale (Screener/Recent Self-Report) Question [...] [facility], [facility] [place] [address] [place] [address], [address] [place] [address] Jeffry Schwartz MD, DMD [address] [place] [phone] [email or web address] documented as of this encounter Visit Diagnoses Not on filedocumented in this encounter Care Teams Nursing Clinical Director Relationship Specialty Start Date End Date Arcenio Day MD [address] [place] [address] PCP - General 01/20/15 10/08/22 Nan Quiles MD [address] [place] [phone] [email or web address] PCP - General Internal Medicine 10/09/22 11/25/22 Marissa Huff MD [address] [place] [phone] [email or web address] PCP - General Internal Medicine 11/26/22 02/25/24 Marissa Huff MD [address] [place] [phone] [email or web address] PCP - General Internal Medicine 02/26/24 09/13/24 Arcenio Day MD [address] [place] [address] PCP - General Internal Medicine 09/14/24 Jeffry Schwartz MD, DMD [address] [place] [address] [email or web address] 05/09/15 Arcenio Day MD [address] [place] [address] Referring Physician Internal Medicine 01/08/16 Nan Quiles MD [address] [place] [phone] [email or web address] Insurance Assigned Provider 03/22/23 07/26/23 documented as of this encounter Additional Source Comments The information contained in this document represents components of the legal health record. It is not the complete legal health record.[facility]
--- OUTSIDE RECORDS SUMMARY | 2025-05-26 18:34 | XMS_ITS | Encounter Summary ---
Author Organization [facility] Address [address] [place] [address] Phone Care Team Providers Care Dumper Mold Cleaner Name Role Phone Arcenio Day MD Primary Care Provider [phone] Jeffry Schwartz MD, DMD Unavailable [phone] Arcenio Day MD Unavailable [phone] Nan Quiles MD Primary Care Provider Marissa Huff MD Primary Care Provide r Nan Quiles MD Unavailable [phone] Marissa Huff MD Primary Care Provide r Arcenio Day MD Primary Care Provider + [phone] Encounter Details Date Type Department Care Team (Late st Contact Info) Description 09/01/2022 Procedure Pass [facility] Echocardiography [address] [place] [address] Social History Tobacco Use Types Packs/Day Years [...] [facility] [place] [address] [place] [address], [address] [place] [address] Jeffry Schwartz MD, DMD [address] [place] [address] [email or web address] documented as of this encounter Visit Diagnoses Not on filedocumented in this encounter Care Teams Dumper Mold Cleaner Relationship Specialty Start Date End Date Arcenio Day MD [address] [place] [phone] PCP - General 01/20/15 10/08/22 Nan Quiles MD [address] [place] [phone] [email or web address] PCP - General Internal Medicine 10/09/22 11/25/22 Marissa Huff MD [address] [place] [phone] [email or web address] PCP - General Internal Medicine 11/26/22 02/25/24 Marissa Huff MD [address] [place] [phone] [email or web address] PCP - General Internal Medicine 02/26/24 09/13/24 Arcenio Day MD [address] [place] [address] PCP - General Internal Medicine 09/14/24 Jeffry Schwartz MD, DMD [address] [place] [address] [email or web address] 05/09/15 Arcenio Day MD [address] [place] [address] Referring Physician Internal Medicine 01/08/16 Nan Quiles MD [address] [place] [address] [email or web address] Insurance Assigned Provider 03/22/23 07/26/23 documented as of this encounter Additional Source Comments The information contained in this document represents components of the legal health record. It is not the complete legal health record.[facility]
== END 2025-05-26 15:39 | disposition home or self-care (01) ==
LOC: HO.HKAS 15:14
PROVIDERS: PCP Internal Medicine; Visit Provider Internal Medicine Nephrology
DX: I10 Essential (primary) hypertension (principal); R80.8 Other proteinuria
CPT/HCPCS: 99214

== ENCOUNTER → 2025-05-26 15:13 | Outpatient (BNVA) | payer MEDICARE, SELFPAY | PROVIDERS: PCP Internal Medicine; Visit Provider Internal Medicine Nephrology | DX: R80.8 Other proteinuria (principal); I10 Essential (primary) hypertension; Z87.891 Personal history of nicotine dependence | CPT/HCPCS: 99212 ==

== ENCOUNTER 2025-08-18 14:58 | Outpatient (AMB) | payer MEDICARE, SELFPAY ==
--- OUTSIDE RECORDS SUMMARY | 2025-04-22 03:01 | XMS_ITS ---
Author Organization [facility] Address [address] [place] [address] Care Team Providers Care Extension Service Agent Name Role Phone REBEL GRAMAJO Primary Care Provider REASON FOR VISIT 2 (W)lab results PROBLEMS Problem Type ICD Code Onset Dates Problem Status W/U Status Risk SNOMED Code Notes Problem Thrombocytopenia (D69.6) Active confirmed [id number] Encounters Encounter Location Date Provider Diagnosis [facility] [address] [place] [phone] 04/22/2025 REBEL GRAMAJO Thrombocytopenia D69 .6 ASSESSMENTS Encounter Date Diagnosis Assessment Notes Treatment Notes Treatment Clinical Notes Section Notes 04/22/2025 Thrombocytopenia (ICD-10 - D69.6) PLAN OF TREATMENT Next Appt Details Provider Name:REBEL LOMBARDI, 11/10/2025 02:15:00 PM, [address] [place], [phone],
--- OUTSIDE RECORDS SUMMARY | 2025-04-25 09:59 | XMS_ITS ---
Author Organization [facility] Address [address] [place] [address] Care Team Providers Care Housing Property Manager Name Role Phone REBEL GRAMJAO Primary Care Provider REASON FOR VISIT referral Encounters Encounter Location Date Provider Diagnosis [facility] [address] [place] [phone] 04/25/2025 REBEL GRAMAJO PLAN OF TREATMENT Next Appt Details Provider Name:REBEL LOMBARDI, 11/10/2025 02:15:00 PM, [address] [place], [address],
--- OUTSIDE RECORDS SUMMARY | 2025-04-27 07:55 | XMS_ITS ---
Author Organization [facility] Address [address] [place] [address] Care Team Providers Care Quality Tester Name Role Phone REBEL GRAMAJO Primary Care Provider REASON FOR VISIT G Tube Referral Encounters Encounter Location Date Provider Diagnosis [facility] [address] [place] [phone] 04/27/2025 REBEL GRAMAJO PLAN OF TREATMENT Next Appt Details Provider Name:REBEL LOMBARDI, 11/10/2025 02:15:00 PM, [address] [place], [address],
--- OUTSIDE RECORDS SUMMARY | 2025-04-28 06:35 | XMS_ITS ---
Author Organization [facility] Address [address] [place] [address] Care Team Providers Care Merchandise Displayer Name Role Phone REBEL GRAMAJO Primary Care Provider [phone] REASON FOR VISIT G Tube Encounters Encounter Location Date Provider Diagnosis [facility] [address] [place] [phone] 04/28/2025 REBEL GRAMAJO PLAN OF TREATMENT Next Appt Details Provider Name:REBEL LOMBARDI, 11/10/2025 02:15:00 PM, [address] [place], [address],
--- OUTSIDE RECORDS SUMMARY | 2025-04-28 10:37 | XMS_ITS ---
Author Organization [facility] Address [address] [place] [address] Care Team Providers Care Improvement Spec Name Role Phone REBEL GRAMAJO Primary Care Provider REASON FOR VISIT fax G-tube notes/order CT abd Encounters Encounter Location Date Provider Diagnosis [address] [phone] 04/28/2025 REBEL GRAMAJO Abdominal adhesions K66.0 ASSESSMENTS Encounter Date Diagnosis Assessment Notes Treatment Notes Treatment Clinical Notes Section Notes 04/28/2025 Abdominal adhesions (ICD-10 - K66.0) PLAN OF TREATMENT Next Appt Details Provider Name:REBEL LOMBARDI, 11/10/2025 02:15:00 PM, [address] [place], [address],
--- OUTSIDE RECORDS SUMMARY | 2025-05-05 03:36 | XMS_ITS ---
Author Organization [facility] Address [address] [place] [address] Care Team Providers Care Punch Hand Name Role Phone REBEL GRAMAJO Primary Care Provider [phone] REASON FOR REFERRAL Reason 05/10/25 W APPT Refe rral to Dr. Samuel camacho Diagnosis 1 Proteinuria, unspeci fied type (R80.9) Referral Organization [facility] Referring Provider First Name REBEL Referring Provider Last Name AVILA Referring Provider Speciality Internal M edicine Referred Provider MAXI FIELDS Referred Provider Specialty Nephrology General Notes JC,Poonam P Admin 11:42:13 AM > faxed medical referral, note and labs to [facility] at [phone] REFERRAL REQUIRED Referral Priority Routine REASON FOR VISIT (2)urine results Encounters Encounter Location Date Provider Diagnosis [address] [address] 05/05/2025 REBEL GRAMAJO Proteinuria, unspecified type R80.9 ASSESSMENTS Encounter Date Diagnosis Assessment Notes Treatment Notes Treatment Clinical Notes Section Notes 05/05/2025 Proteinuria, unspecified type (ICD-10 - R80.9) PLAN OF TREATMENT Future Test Test Name Order Date Albumin/Creatinine Ratio,Urine-[id number] Referrals Referral Date Details 05/10/25 W APPT Refe rral to MAXI Cazares Next Appt Details Provider Name:REBEL LOMBARDI, 11/10/2025 02:15:00 PM, [address] [place] [address], [phone], Consultation Request Notes Referral Date Referring Provider Referred Provider Not es 05/05/2025 REBEL GRAMAJO SHAJI 05/10/25 W APPT Referral to Dr. Baker proteinuria
--- OUTSIDE RECORDS SUMMARY | 2025-05-09 08:54 | XMS_ITS ---
Author Organization [facility] Address [address] [place] [address] Care Team Providers Care Environmental Web Crawler Name Role Phone REBEL GRAMAJO Primary Care Provider REASON FOR VISIT ct scan Encounters Encounter Location Date Provider Diagnosis [facility] [address] [place] [phone] 05/09/2025 REBEL GRAMAJO PLAN OF TREATMENT Next Appt Details Provider Name:REBEL LOMBARDI, 11/10/2025 02:15:00 PM, [address] [place], [address],
[2025-08-18 15:03] VITALS: BP 156/90; PULSE 78; O2SAT 93; BMI 23.2
--- NOTE | 2025-08-18 15:03 | HO.NEPHOV ---
Vital Signs 08/18/25 15:03 Height 5 ft 4 in Weight 135 lb BMI 23.2 BP 156/90 H Blood Pressure Location Lt brachial Position Sitting Pulse 78 Pulse Source Pulse Oximeter Pulse Oximetry (%) 93 Oxygen Delivery Method Room Air Intake Visit Reasons: 2mnth-Conf Special Delivery Carrier Required: No Accompanied by: Self / Same As Patient Allergies No Known Allergies Allergy (Verified 08/18/25 15:03) HPI Comments Details: I had the privilege of seeing Marcus for proteinuria on a backdrop of hypertension. 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 He has no nausea, vomiting, diarrhea, aspiration pneumonias, pedal edema, shortness of breath. He has no history of renal or liver failure. He denies any edema or hematuria. He takes PPI. He continues to fluid restrict himself. His last serum sodium is normal. He feels well. All other systems were reviewed and were negative. [facility], [facility] Medical History (Updated 05/26/25 @ 15:21 by Chinedu Cevallos MD) FRANCINE (iron deficiency anemia) GERD (gastroesophageal reflux disease) Hyperlipidemia Hypertension History of renal cell cancer History of laryngeal cancer Surgical History History of bronchoscopy (~2017) History of left inguinal hernia repair (~2015) History of left nephrectomy (~2008) Social History Patient Tobacco Use Status: Former Tobacco user Years Smoked: (onset 16yo, 1-1.5ppd x 32yrs, quit 2002) Review of Systems Const All systems reviewed & are unremarkable except as noted in HPI and below Physical Exam Const General: comfortable and no acute distress Orientation/consciousness: patient oriented x3 HEENT Head: Yes normocephalic Mouth: Normal oral and palatal mucosa present Eyes EOM: EOMs intact bilaterally Neck Neck: Yes supple Resp Auscultation: clear to auscultation bilaterally Cardio Jugular venous distension: no JVD Rate: regular rate GI Palpation (GI): Soft to palpation Auscultation: normal bowel sounds General: Yes no CVA tenderness Back/Spine/Pelvis Back: no CVA tenderness Skin General skin exam: no rashes or lesions noted Neuro General: patient oriented x3 and moves all extremities Extrem General: Yes no pedal edema Assessment & Plan Assessment & Plan (1) Hypertension: Code(s): I10 - Essential (primary) hypertension Category: Medical Qualifiers: Hypertension type: primary hypertension Qualified Code(s): I10 - Essential (primary) hypertension (2) Proteinuria: Code(s): R80.9 - Proteinuria, unspecified Category: Medical Qualifiers: Proteinuria type: other Qualified Code(s): R80.8 - Other proteinuria Plan Grady has H/O acquired solitary kidney and hypertension. He has H/O excess ADH with development of hyponatremia which was treated with oral urea. We have discontinued it and he remains on fluid restriction with stable serum sodium. His 24 hour urine for protein showed 157 gram . I started him on lisinopril 2.5 mg to be taken at night( side effects explained). FU labs ordered. His volume status is optimal. I did not make any other medication changes today. F/U given Orders: Orders Blood Urea Nitrogen 6 Weeks I10 - Essential (primary) hypertension, R80.8 - Other proteinuria Creatinine 6 Weeks I10 - Essential (primary) hypertension, R80.8 - Other proteinuria Electrolytes 6 Weeks I10 - Essential (primary) hypertension, R80.8 - Other proteinuria Medications: New lisinopril 2.5 mg PO DAILY 90 tabs 3RF Coding Level of Care Code Est Pt Level 4 (24745) Diagnoses Primary hypertension I10 Hypertension type: primary hypertension Other proteinuria R80.8 Proteinuria type: other
--- OUTSIDE RECORDS SUMMARY | 2025-08-18 21:16 | XMS_ITS | Patient Health Record ---
Author Organization [place] [facility] Address [address] [place] [address] Care Team Providers Care Data Processing Operator Name Role Phone REBEL GRAMAJO Primary Care Provider [phone] ALLERGIES No Known Allergies REASON FOR REFERRAL Reason 09/24/[address] Cons [address] [facility] [facility] surgery question abdominal wall lipoma for question excision Diagnosis 1 Abdominal mass, unsp ecified abdominal location (R19.00) Referral Organization [facility] Referring Provider First Name REBEL Referring Provider Last Name AVILA Referring Provider Speciality Internal edicine Referred Provider ROCKY BABIN III Referred Provider Specialty Surgery General Notes Poonam GREENE 06/2025 01:21:34 PM > per office protocol medical referral, notes and labs have been faxed to [facility] at [phone] Referral Priority Routine Reason [facility] dermatology consult skin skin cancer screening and lesion on the chest wall to be evaluated for cancer patient will call Diagnosis 1 Skin lesion (L98.9) Referral Organization [facility]awn Referring Provider First Name REBEL Referring Provider Last Name AVILA Referring Provider Speciality Internal M edicine Referral Priority Routine Reason 04/27/25 w appt Refe rral to [facility] interventional radiology for G-tube replacement patient will call Diagnosis 1 Gastric tube granula tion tissue (K94.29) Referral Organization [facility]awn Referring Provider First Name REBEL Referring Provider Last Name AVILA Referring Provider Speciality Internal edicine Referred Organization [facility] General Notes Berenice GREENE [place] 025 01:14:01 PM > faxed to [facility] [phone] Referral Priority Routine Reason 05/10/25 w appt [place] [facility] referral colonoscopy question endoscopy Diagnosis 1 Colon cancer screeni ng (Z12.11) Referral Organization [facility] Referring Provider First Name REBEL Referring Provider Last Name AVILA Referring Provider Speciality Internal edicine Referred Provider HEENA SANDERSON Referred Provider Specialty Gastroentero logy General Notes JC,Poonam P Admin 11:50:38 AM > faxed medical referral, note and most recent labs to [phone]'s last colonoscopy was 05/26/[address] Sanderson>no referral required Referral Priority Routine Reason 05/10/25 W APPT Refe rral to Dr. Baker proteinuria Diagnosis 1 Proteinuria, unspeci fied type (R80.9) [facility] Referring Provider First Name REBEL Referring Provider Last Name AVILA Referring Provider Speciality Internal edicine Referred Provider MAXI FIELDS Referred Provider Specialty Nephrology General Notes JC,Poonam P Admin 11:42:13 AM > faxed medical referral, note and labs to [facility] at [phone] REFERRAL REQUIRED Referral Priority Routine MEDICATIONS Medication SIG (Take, Route, Frequency, Duration) Notes Start Date End Date Status Carvedilol 12.5 mg TAKE 1 TABLET TWICE A DAY WITH FOOD Active Omeprazole 40 MG 1 capsule 30 minutes before morning meal Orally Once a day for 30 day(s) Active traZODone HCl 50 mg TAKE 1 TABLET DAILY AT BEDTIME NEEDED Active Atorvastatin Calcium 40 mg TAKE 1 TABLET DAILY Active Levothyroxine Sodium 75 MCG 1 tablet in the morning on an empty stomach Orally once a day for 90 days Active IMMUNIZATIONS Vaccine Route Administration Date Status Comme nts Influenza, Fluzone HD 65+ IM Intramuscular 05/31/2024 Admi nistered SOCIAL HISTORY Tobacco Use: Social History Observation Description Date Details (start date - stop date) Former Smoker NA - NA Sex Assigned At : Social History Observation Description Sex Assigned At Unknown Smoking Question Answer Notes Are you a: former smoker How long has it been since you last smoked? > 10 years PROBLEMS Problem Type ICD Code Onset Dates Problem Status W/U Status Risk SNOMED Code Notes Problem Zaragoza's esophagus (530.85) Active confirmed Zaragoza's esophagus (723276326) Problem Essential hypertension (I10) Active confirmed 93323888 Problem Chronic obstructive pulmonary disease, unspecified (J44.9) Active confirmed Chronic obstructive pulmonary disease (04167554) Problem Thrombocytopenia (D69.6) Active confirmed 050170152 Problem Acquired hypothyroidism (E03.9) Active confirmed 029754832 Problem Disorder of lipoprotein metabolism, unspecified (E78.9) Active confirmed Disorder of lipoprotein storage and metabolism (disorder) (888194651) Problem Zaragoza's esophagus without dysplasia (K22.70) Active confirmed Zaragoza's esophagus (451992500) Problem Gastroesophageal reflux disease without esophagitis (K21.9) Active confirmed 607363515 Problem Pulmonary emphysema, unspecified emphysema type (J43.9) Active confirmed 72482937 Problem Laryngeal cancer (C32.9) Active confirmed 707841661 Problem Leukocytosis, unspecified type (D72.829) Active confirmed 021488335 Problem Elevated cholesterol (E78.00) Active confirmed 70037683 Problem Status post tracheostomy (Z93.0) Active confirmed 496681110 VITAL SIGNS Blood pressure diastolic 85 mm Hg 04/21/2025 Height 65 in 04/21/2025 Blood pressure systolic 165 mm Hg 04/21/2025 Weight 130 lbs 04/21/2025 BMI 21.63 kg/m2 04/21/2025 Encounters Encounter Location Date Provider Diagnosis [address] [address] 09/22/2024 REBEL GRAMAJO Essential (primary) hypertension I10 ; Disorder of lipoprotein metabolism, unspecified E78.9 ; Chronic obstructive pulmonary disease, unspecified J44.9 ; Gastro-esophageal reflux disease without esophagitis K21.9 ; Acquired hypothyroidism E03.9 ; Laryngeal cancer C32.9 ; Colon cancer screening Z12.11 ; Skin lesion L98.9 and Abdominal mass, unspecified abdominal location R19.[address] [address] 09/22/2024 REBEL GRAMAJO Acquired hypothyroid ism E03.[address] [address] 09/22/2024 REBEL GRAMAJO [address] [address] 09/24/2024 REBEL GRAMAJO [address] [address] 11/05/2024 REBEL GRAMAJO Acquired hypothyroid ism E03.9 [place] [address] 01/05/2025 REBEL GRAMAJO [address] 03/28/2025 REBEL GRAMAJO [place] [address] 04/05/2025 REBEL GRAMAJO [place] [address] 04/21/2025 REBEL GRAMAJO Essential (primary) hypertension I10 ; Disorder of lipoprotein metabolism, unspecified E78.9 ; Chronic obstructive pulmonary disease, unspecified J44.9 ; Acquired hypothyroidism E03.9 ; Laryngeal cancer C32.9 ; Colon cancer screening Z12.11 ; Deficiency of other specified B group vitamins E53.8 ; Nocturia R35.1 and Gastric tube granulation tissue K94.29 [place] [address] 04/22/2025 REBEL GRAMAJO Thrombocytopenia D69 .6 [place] [address] 04/22/2025 REBEL GRAMAJO Asymptomatic protein uria R80.9 [place] [address] 04/25/2025 REBEL GRAMAJO [place] [address] 04/27/2025 REBEL GRAMAJO [place] [address] 04/28/2025 REBEL GRAMAJO [place] [address] 04/28/2025 REBEL GRAMAJO Abdominal adhesions K66.0 [place] [address] 05/05/2025 REBEL GRAMAJO Proteinuria, unspeci fied type R80.9 [place] [address] 05/09/2025 REBEL GRAMAJO ASSESSMENTS Encounter Date Diagnosis Assessment Notes Treatment Notes Treatment Clinical Notes Section Notes 05/05/2025 Proteinuria, unspecified type (ICD-10 - R80.9) 04/28/2025 Abdominal adhesions (ICD-10 - K66.0) 04/22/2025 Asymptomatic proteinuria (ICD-10 - R80.9) 04/22/2025 Thrombocytopenia (ICD-10 - D69.6) 04/21/2025 Disorder of lipoprotein metabolism, unspecified (ICD-10 - E78.9) Continue statin therapy check lipid profile LDL goal less than 100 total less than 200 04/21/2025 Essential (primary) hypertension (ICD-10 - I10) Blood pressure stable well-controlled no change in therapy 11/05/2024 Acquired hypothyroidism (ICD-10 - E03.9) 09/22/2024 Acquired hypothyroidism (ICD-10 - E03.9) 09/22/2024 Disorder of lipoprotein metabolism, unspecified (ICD-10 - E78.9) Continue statin therapy check LFTs lipid profile LDL goal less than 100 total cholesterol less than 200 09/22/2024 Essential (primary) hypertension (ICD-10 - I10) Blood pressure stable on recheck. No change in therapy. Strongly recommend patient get a monitor and keep an eye on his blood pressure at home. Instructed him to call if it is greater than 130/80 will check at least 2-3 times a week. Check EKG normal sinus rhythm no change 04/21/2025 Chronic obstructive pulmonary disease, unspecified (ICD-10 - J44.9) As needed beta-2. Does not require very frequently. Follow-up with pulmonary every 6 months 09/22/2024 Chronic obstructive pulmonary disease, unspecified (ICD-10 - J44.9) Follow-up with pulmonary every 6 months. Doing well. Continue with inhaler patient will call back with the medication that he is presently on 09/22/2024 Gastro-esophageal reflux disease without esophagitis (ICD-10 - K21.9) 04/21/2025 Acquired hypothyroidism (ICD-10 - E03.9) Stable check TSH follow-up in 6 months 09/22/2024 Acquired hypothyroidism (ICD-10 - E03.9) Because of insurance cost per patient's request we will change to 50 mcg and recheck in 6 weeks 04/21/2025 Laryngeal cancer (ICD-10 - C32.9) Stable physical exam unchanged no recurrence 09/22/2024 Laryngeal cancer (ICD-10 - C32.9) Stable doing well follow-up yearly with ENT 04/21/2025 Colon cancer screening (ICD-10 - Z12.11) 7 years from last colonoscopy will set up GI consult for recheck: Colonoscopy 09/22/2024 Colon cancer screening (ICD-10 - Z12.11) Patient due for colonoscopy after 10 years according to the patient 04/21/2025 Deficiency of other specified B group vitamins (ICD-10 - E53.8) Check B12 folic acid while on antacids 09/22/2024 Skin lesion (ICD-10 - L98.9) Referral to [facility] question whether there is a small basal cell on his anterior chest wall 04/21/2025 Nocturia (ICD-10 - R35.1) Stable check PSA 09/22/2024 Abdominal mass, unspecified abdominal location (ICD-10 - R19.00) Probable lipoma around the site of the G-tube. Consult Dr. Jimenez question excision 04/21/2025 Gastric tube granulation tissue (ICD-10 - K94.29) Referral to interventional radiology [facility] for G-tube replacement PLAN OF TREATMENT Pending Test Test Name Order Date EKG 07/23/2023 Future Test Test Name Order Date FERRITIN 02/16/2016 CBC W/ AUTOMATED DIFF 02/16/2016 CBC With Differential/Platelet-[id number] Sedimentation Pemp-Vyfoyxpzzi-093500 Lipid Panel-251360 01/06/2024 BMP8+eGFR-212758 01/06/2024 TSH Rfx on Abnormal to Free T4-106879 Sedimentation Lxjq-Bbwozmrsln-319594 C-Reactive Protein, Quant-903385 024 CBC, Platelet, w/o Differential-445577 0 05/31/2024 Lipid Panel-090226 05/31/2024 Hepatic Function Panel (7)-[id number] 2023 BMP8+eGFR-221683 05/31/2024 T4 Free Direct (Thyroxine)-046265 2024 TSH-518827 12/17/2024 Albumin/Creatinine Ratio,Urine-981950 Next Appt Details Provider Name:REBEL LOMBARDI, 11/10/2025 02:15:00 PM, [address] [place], [address], Insurance Providers Payer Name Payer Address Payer Phone Subscriber Number Group Number Insured Name Patient Relationship to Insured Coverage Start Date Coverage End Date MEDICARE [facility] [email or web address] 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 Sanderson. Due 2022 . Immunization status COVID zach tayo 2022 flu shot 2022 Pneumovax x 2. Tetanus 2010 Right knee meniscal tear surgery this we ek with Dr. Mike Gramajo Nephrology Dr. Mart Duffy 2023 follow-up for hyponatremia secondary to excess ADH [facility] Dr. Pickett follow-up Septe 2022 History of recurrent aspiration last 2022 Abdominal ultrasound December 2019 4 subcut aneous mass consistent with lipoma MRI orbits face and neck April 2024 neg ative Ultrasound abdomen December 2019 4 subcutan eous mass consistent with lipoma Pulmonary Dr. Pickett February 2025 follow-up consult Surgical History Surgery Date(Month/Year) mylenoma 02/06 lipoma near feeding tube 11/09 posterior maxillary molar extraction 01/14 012 [facility] [place] Dr Raman Romero 08/16/12 Laryngoscopy unremarkable except for expected radiation changes nephrectomy partial 2008 Hospitalization History Reason Date(Month/Year) above [place] 10/07
--- OUTSIDE RECORDS SUMMARY | 2025-08-18 21:16 | XMS_ITS | Encounter Summary ---
Author Organization [facility] Address [address] [place] [address] Care Team Providers Care Nonprofit Financial Controller Name Role Phone Arcenio Day MD Primary Care Provider + [phone] Encounter Details Date Type Department Care Team ([facility] st Contact Info) Description 07/22/2025 Results Follow-Up Gastroenterology - [address] [id number] [place] MD [address] [place] [address] [address] [place] [address] Social History Tobacco Use Types Packs/Day Years Used Date Smoking Tobacco: Former Cigarettes 0 Q uit: 09/15/2002 Smokeless Tobacco: Never Alcohol Use Standard Drinks/Week Comments Not Currently 0 (1 standard drink = 0.6 oz pur e alcohol) Interpersonal Safety Answer Date Record ed Physical Abuse Unrecognized value 07/21/2025 Verbal Abuse Unrecognized value 07/21/2025 Sex and Gender Information Value Date Recorded Sex Assigned at Male 05/02/2025 7:43 AM EDT Legal Sex Male 6:56 AM EST Gender Identity Not on file Sexual Orientation Not on file documented as of this encounter Plan of Treatment Not on file documented as of this encounter Goals Goal Patient Goal Type Associated Problems Recent Progress Patient-Stated? Author Savanna navarro Goal Care Plan Autogenerated Problem No Liliana Cavazos documented as of this encounter Visit Diagnoses Not on filedocumented in this encounter Additional Health Concerns Active Problems Noted Date Diagnosed Date Autogenerated Problem 06/16/2025 documented as of this encounter Care Teams Nonprofit Financial Controller Relationship Specialty Start Date End Date Arcenio Day MD [address] [place] [address] PCP - General Internal Medicine 04/14/18 documented as of this encounter
--- OUTSIDE RECORDS SUMMARY | 2025-08-18 21:17 | XMS_ITS | Encounter Summary ---
Author Organization [facility] Address [address] [place] [address] Phone Care Team Providers Care Technical Expert Name Role Phone Arcenio Day MD Primary Care Provider [phone] Jeffry Schwartz MD, DMD Unavailable [phone] Arcenio Day MD Unavailable [phone] Nan Quiles MD Primary Care Provider Marissa Huff MD Primary Care Provide r Nan Quiles MD Unavailable [phone] Marissa Huff MD Primary Care Provide r Arcenio Day MD Primary Care Provider + [phone] Encounter Details Date Type Department Care Team (Late st Contact Info) Description 09/06/2022 Procedure Pass [facility] Periop [address] [place] [address] Social History Tobacco Use Types Packs/Day Years [...] Value Date Recorded Sex Assigned at Male 07/05/2025 9:57 AM EDT Legal Sex Male 5:12 PM EST Gender Identity Male 07/05/2025 9:57 AM EDT Sexual Orientation Straight 07/05/2025 9: 57 AM EDT documented as of this encounter Functional Status * Calculated C-SSRS Risk Score (Lifetime/Recent) Answer Date of Assessment Author No Risk Indicated 09/06/2022 7:07 PM Earnest Bahena RN * [place] Suicide Severity Rating Scale (Screener/Recent Self-Report) Question [...] Care Team (Late st Contact Info) Description 07/05/2025 Procedure Pass [facility] Angio Interventional Radiology [address] [place] [address] 08/25/2025 11:00 AM EST Office [facility] [place] [address] [place] [address], [address] [place] [address] Jeffry Schwartz MD, DMD [address] [place] [address] [email or web address] 01/03/2026 11:00 AM EDT Appointment [facility] Angio Interventional Radiology [address] [place] [address] Keily Castellanos MD [address] [place] [address] [email or web address] documented as of this encounter Visit Diagnoses Not on filedocumented in this encounter Care Teams Technical Expert Relationship Specialty Start Date End Date Arcenio Day MD [address] [place] [address] PCP - General 01/20/15 10/08/22 Nan Quiles MD [address] [place] [phone] [email or web address] PCP - General Internal Medicine 10/09/22 11/25/22 Marissa Huff MD [address] [place] [phone] [email or web address] PCP - General Internal Medicine 11/26/22 02/25/24 Marissa Huff MD [address] [place] [phone] [email or web address] PCP - General Internal Medicine 02/26/24 09/13/24 Arcenio Day MD [address] [place] [phone] PCP - General Internal Medicine 09/14/24 Jeffry Schwartz MD, DMD [address] [place] [address] [email or web address] 05/09/15 Arcenio Day MD [address] [place] [address] Referring Physician Internal Medicine 01/08/16 Nan Quiles MD [address] [place] [phone] [email or web address] Insurance Assigned Provider 03/22/23 07/26/23 documented as of this encounter Additional Source Comments The information contained in this document represents components of the legal health record. It is not the complete legal health record.[facility]
--- OUTSIDE RECORDS SUMMARY | 2025-08-18 21:17 | XMS_ITS | Encounter Summary ---
Author Organization [facility] Address [address] [place] [address] Care Team Providers Care Methane Gas Collection System Operator Name Role Phone Arcenio Day MD Primary Care Provider + [phone] Encounter Details Date Type Department Care Team (Late st Contact Info) Description 11/09/2024 Lab Requisition [facility] - Main Lab [address] [facility] [place] [address] Lexis Buitrago MD Other intra-abdominal and pelvic swelling, mass and lump Social History Tobacco Use Types Packs/Day Years [...] on file documented as of this encounter Procedures Procedure Name Priority Date/Time Associated Diagnosis Comments TISSUE EXAM Routine 11/09/2024 Other intra-abdominal and pelvic swelling, mass and lump documented in this encounter Results * Tissue Exam (11/09/2024) Final Diagnosis Soft tissue, abdominal wall-excision: -BENIGN FIBRO-MEMBRANEOUS AND FIBROADIPOSE TISSUE 11/10/2024 1:33 PM EST [facility] at 1333 EST Comment Clinical correlation is needed to exclude lipoma vs hernia sac. 11/10/2024 1:33 PM EST [facility] Clinical Information Mass abdominal wall R19.09 11/10/2024 1:33 PM EST [facility] Gross Description A. Abdominal Wall, : Labeled mass of abdominal wall . Received in formalin is a 3.7 x 3.1 x 2.1 cm yellow lobular portion adipose tissue. The cut surfaces are comprised of glistening yellow lobular adipose tissue with no areas of hemorrhage or necrosis. Commercial Intelligence Manager sections are submitted one cassette, four pieces. GRANT 11/10/2024 1:33 PM EST [facility] Disclaimer Unless otherwise specified, all tissue is 10% NB formalin fixed and paraffin embedded. 11/10/2024 1:33 PM [facility] Tissue Structure of abdominopelvic wall / Unknown 11/09/2024 11/09/2024 3:06 PM EST us Lexis Buitrago MD LAB PATHOLOGY ORDERABLES Final Result [facility] [address] [place] [address], documented in this encounter Visit Diagnoses Diagnosis Other intra-abdominal and pelvic swelling, mass and lump documented in this encounter Care Teams Methane Gas Collection System Operator Relationship Specialty Start Date End Date Arcenio Day MD [address] [place] [address] PCP - General Internal Medicine 04/14/18 documented as of this encounter
--- OUTSIDE RECORDS SUMMARY | 2025-08-18 21:17 | XMS_ITS | Encounter Summary ---
Author Organization [facility] Address [address] [place] [address] Phone Care Team Providers Care Corporate Sales Manager Name Role Phone Arcenio Day MD Primary Care Provider [phone] Jeffry Schwartz MD, DMD Unavailable [phone] Arcenio Day MD Unavailable [phone] Nan Quiles MD Primary Care Provider Marissa Huff MD Primary Care Provide r Nan Quiles MD Unavailable [phone] Marissa Huff MD Primary Care Provide r Arcenio Day MD Primary Care Provider + [phone] Encounter Details Date Type Department Care Team (Late st Contact Info) Description 09/05/2022 Procedure Pass [facility] [address] [place] [address] Social History Tobacco Use Types Packs/Day Years [...] 09/06/2022 7:07 PM Earnest Bahena RN * [place] Suicide Severity Rating Scale (Screener/Recent Self-Report) Question [...] st Contact Info) Description 07/05/2025 Procedure Pass [facility] Angio Interventional Radiology [address] [place] [address] 08/25/2025 11:00 AM EST Office [facility] [place] [address] [place] [address], [address] [place] [address] Jeffry Schwartz MD, DMD [address] [place] [address] [email or web address] 01/03/2026 11:00 AM EDT Appointment [facility] Angio Interventional Radiology [address] [place] [address] Keily Castellanos MD [address] [place] [address] [email or web address] documented as of this encounter Visit Diagnoses Not on filedocumented in this encounter Care Teams Corporate Sales Manager Relationship Specialty Start Date End Date Arcenio Day MD [address] [place] [address] PCP - General 01/20/15 10/08/22 Nan Quiles MD [address] [place] [phone] [email or web address] PCP - General Internal Medicine 10/09/22 11/25/22 Marissa Huff MD [address] [place] [phone] [email or web address] PCP - General Internal Medicine 11/26/22 02/25/24 Marissa Huff MD [address] [place] [phone] [email or web address] PCP - General Internal Medicine 02/26/24 09/13/24 Arcenio Day MD [address] [place] [address] PCP - General Internal Medicine 09/14/24 Jeffry Schwartz MD, DMD [address] [place] [phone] [email or web address] 05/09/15 Arcenio Day MD [address] [place] [address] Referring Physician Internal Medicine 01/08/16 Nan Quiles MD [address] [place] [phone] [email or web address] Insurance Assigned Provider 03/22/23 07/26/23 documented as of this encounter Additional Source Comments The information contained in this document represents components of the legal health record. It is not the complete legal health record.[facility]
--- OUTSIDE RECORDS SUMMARY | 2025-08-18 21:17 | XMS_ITS | Encounter Summary ---
Author Organization [facility] Address [address] [place] [address] Phone Care Team Providers Care Online Marketing Analyst Name Role Phone Arcenio Day MD Primary Care Provider [phone] Jeffry Schwartz MD, DMD Unavailable [phone] Arcenio Day MD Unavailable [phone] Nan Quiles MD Primary Care Provider Marissa Huff MD Primary Care Provide r Nan Quiles MD Unavailable +[phone] Marissa Huff MD Primary Care Provide r Arcenio Day MD Primary Care Provider + [phone] Encounter Details Date Type Department Care Team (Late st Contact Info) Description 09/01/2022 Procedure Pass [facility] Echocardiography [address] [place] [address] Social History Tobacco Use Types Packs/Day Years [...] AM EDT documented as of this encounter Plan of Treatment Upcoming Encounters Date Type Department Care Team (Late st Contact Info) Description 07/05/2025 Procedure Pass [facility] Angio Interventional Radiology [address] [place] [address] 08/25/2025 11:00 AM EST Office [facility], [facility] [facility] [place] [address] [place] [address], 11th [place] [address] Jeffry Schwartz MD, DMD [address] [place] [address] [email or web address] 01/03/2026 11:00 AM EDT Appointment [facility] Angio Interventional Radiology [address] [place] [address] Keily Castellanos MD [address] [place] [address] [email or web address] documented as of this encounter Visit Diagnoses Not on filedocumented in this encounter Care Teams Online Marketing Analyst Relationship Specialty Start Date End Date Arcenio Day MD [address] [place] [address] PCP - General 01/20/15 10/08/22 Nan Quiles MD [address] [place] [phone] [email or web address] PCP - General Internal Medicine 10/09/22 11/25/22 Marissa Huff MD [address] [place] [phone] [email or web address] PCP - General Internal Medicine 11/26/22 02/25/24 Marissa Huff MD [address] [place] [phone] [email or web address] PCP - General Internal Medicine 02/26/24 09/13/24 Arcenio Day MD [address] [place] [address] PCP - General Internal Medicine 09/14/24 Jeffry Schwartz MD, DMD [address] [place] [address] [email or web address] 05/09/15 Arcenio Day MD [address] [place] [address] Referring Physician Internal Medicine 01/08/16 Nan Quiles MD [address] [place] [phone] [email or web address] Insurance Assigned Provider 03/22/23 07/26/23 documented as of this encounter Additional Source Comments The information contained in this document represents components of the legal health record. It is not the complete legal health record.[facility]
--- OUTSIDE RECORDS SUMMARY | 2025-08-18 21:17 | XMS_ITS | Encounter Summary ---
Author Organization [facility] Address [address] [place] [address] Phone Care Team Providers Care Mobile Sales Expert Name Role Phone Arcenio Day MD Primary Care Provider [phone] Jeffry Schwartz MD, DMD Unavailable [phone] Arcenio Day MD Unavailable [phone] Nan Quiles MD Primary Care Provider Marissa Huff MD Primary Care Provide r Nan Quiles MD Unavailable [phone] Marissa Huff MD Primary Care Provide r Arcenio Day MD Primary Care Provider + [phone] Encounter Details Date Type Department Care Team (Late st Contact Info) Description 09/10/2022 Procedure Pass [facility] Periop [address] [place] [address] Social History Tobacco Use Types Packs/Day Years [...] st Contact Info) Description 07/05/2025 Procedure Pass [facility] Angio Interventional Radiology [address] [place] [address] 08/25/2025 11:00 AM EST Office Visit [facility], [facility] [place] [address] [place] [address], 11th [place] [address] Jeffry Schwartz MD, DMD 45 [place] [address] [email or web address] 01/03/2026 11:00 AM EDT Appointment [facility] Angio Interventional Radiology [address] [place] [address] Keily Castellanos MD [address] [place] [address] [email or web address] documented as of this encounter Visit Diagnoses Not on filedocumented in this encounter Care Teams Mobile Sales Expert Relationship Specialty Start Date End Date Arcenio Day MD [address] [place] [address] PCP - General 01/20/15 10/08/22 Nan Quiles MD 1 [place] [address] [email or web address] PCP - General Internal Medicine 10/09/22 11/25/22 Marissa Huff MD [address] [place] [phone] [email or web address] PCP - General Internal Medicine 11/26/22 02/25/24 Marissa Huff MD [address] [place] [phone] [email or web address] PCP - General Internal Medicine 02/26/24 09/13/24 Arcenio Day MD [address] [place] [address] PCP - General Internal Medicine 09/14/24 Jeffry Schwartz MD, DMD [address] [place] [address] [email or web address] 05/09/15 Arcenio Day MD [address] [place] [address] Referring Physician Internal Medicine 01/08/16 Nan Quiles MD [address] [place] [phone] [email or web address] Insurance Assigned Provider 03/22/23 07/26/23 documented as of this encounter Additional Source Comments The information contained in this document represents components of the legal health record. It is not the complete legal health record.[facility]
--- OUTSIDE RECORDS SUMMARY | 2025-08-18 21:17 | XMS_ITS | Encounter Summary ---
Author Organization [facility] Address [address] [facility] [address] [place] [address] Phone Care Team Providers Care Cupola Operator Insulation Name Role Phone Arcenio Day MD Primary Care Provider [phone] Jeffry Schwartz MD, DMD Unavailable +[phone] Arcenio Day MD Unavailable [phone] Nan Quiles MD Primary Care Provider Marissa Huff MD Primary Care Provide r Nan Quiles MD Unavailable [phone] Mairssa Huff MD Primary Care Provide r Arcenio Day MD Primary Care Provider + [phone] Encounter Details Date Type Department Care Team (Late st Contact Info) Description 09/20/[address] [facility] Periop [address] [place] [address] Social History Tobacco Use Types Packs/Day Years [...] st Contact Info) Description 07/05/[address] [facility] Angio Interventional Radiology [address] [place] [address] 08/25/2025 11:00 AM EST Office Visit [facility], [facility] [place] [address] [place] [address], 11th [place] [address] Jeffry Schwartz MD, DMD [address] [place] [address] [email or web address] 01/03/2026 11:[address] [facility] Angio Interventional Radiology [address] [place] [address] Keily Castellanos MD [address] [place] [address] [email or web address] documented as of this encounter Visit Diagnoses Not on filedocumented in this encounter Care Teams Cupola Operator Insulation Relationship Specialty Start Date End Date Arcenio Day MD [address] [place] [address] PCP - General 01/20/15 10/08/22 Nan Quiles MD 1 [place] [address] [email or web address] PCP - General Internal Medicine 10/09/22 11/25/22 Marissa Huff MD [address] [place] [phone] [email or web address] PCP - General Internal Medicine 11/26/22 02/25/24 Marissa Huff MD [address] [place] [phone] [email or web address] PCP - General Internal Medicine 02/26/24 09/13/24 Arcenio Day MD [address] [place] [address] PCP - General Internal Medicine 09/14/24 Jeffry Schwartz MD, DMD [address] [place] [address] [email or web address] 05/09/15 Arcenio Day MD [address] [place] [address] Referring Physician Internal Medicine 01/08/16 Nan Quiles MD [address] [place] [phone] [email or web address] Insurance Assigned Provider 03/22/23 07/26/23 documented as of this encounter Additional Source Comments The information contained in this document represents components of the legal health record. It is not the complete legal health record.[facility]
--- OUTSIDE RECORDS SUMMARY | 2025-08-18 21:17 | XMS_ITS | Encounter Summary ---
Author Organization [facility] Address [address] [facility] [address] [place] [address] Phone Care Team Providers Care Small Equipment Operator Name Role Phone Arcenio Day MD Primary Care Provider [phone] Jeffry Schwartz MD, DMD Unavailable [phone] Arcenio Day MD Unavailable [phone] Nan Quiles MD Primary Care Provider Marissa Huff MD Primary Care Provide r Nan Quiles MD Unavailable [phone] Marissa Huff MD Primary Care Provide r Arcenio Day MD Primary Care Provider + [phone] Encounter Details Date Type Department Care Team (Late st Contact Info) Description 09/08/2022 Procedure Pass [facility] [address] [place] [address] Social History Tobacco Use Types Packs/Day Years [...] st Contact Info) Description 07/05/2025 Procedure Pass [facility] Angio Interventional Radiology [address] [place] [address] 08/25/2025 11:00 AM EST Office Visit [facility], [facility] [facility] [place] [address] [place] [address], 11th [place] [address] Jeffry Schwartz MD, DMD 45 [place] [address] [email or web address] 01/03/2026 11:00 AM EDT Appointment [facility] Angio Interventional Radiology [address] [place] [address] Keily Castellanos MD [address] [place] [address] [email or web address] documented as of this encounter Visit Diagnoses Not on filedocumented in this encounter Care Teams Small Equipment Operator Relationship Specialty Start Date End Date Arcenio Day MD [address] [place] [address] PCP - General 01/20/15 10/08/22 Nan Quiles MD 1 [place] [address] [email or web address] PCP - General Internal Medicine 10/09/22 11/25/22 Marissa Huff MD [address] [place] [phone] [email or web address] PCP - General Internal Medicine 11/26/22 02/25/24 Marissa Huff MD [address] [place] [phone] [email or web address] PCP - General Internal Medicine 02/26/24 09/13/24 Arcenio Day MD [address] [place] [address] PCP - General Internal Medicine 09/14/24 Jeffry Schwartz MD, DMD [address] [place] [address] [email or web address] 05/09/15 Arcenio Day MD [address] [place] [address] Referring Physician Internal Medicine 01/08/16 Nan Quiles MD [address] [place] [phone] [email or web address] Insurance Assigned Provider 03/22/23 07/26/23 documented as of this encounter Additional Source Comments The information contained in this document represents components of the legal health record. It is not the complete legal health record.[facility]
--- OUTSIDE RECORDS SUMMARY | 2025-08-18 21:17 | XMS_ITS | Encounter Summary ---
Author Organization [facility] Address [address] [facility] [address] [place] [address] Phone Care Team Providers Care Truck Switcher Name Role Phone Arcenio Day MD Primary Care Provider [phone] Jeffry Schwartz MD, DMD Unavailable +[phone] Arcenio Day MD Unavailable [phone] Nan Quiles MD Primary Care Provider Marissa Huff MD Primary Care Provide r Nan Quiles MD Unavailable [phone] Marissa Huff MD Primary Care Provide r Arcenio Day MD Primary Care Provider + [phone] Encounter Details Date Type Department Care Team (Late st Contact Info) Description 08/31/2022 Procedure Pass [facility] [address] [place] [address] Social History Tobacco Use Types Packs/Day Years [...] st Contact Info) Description 07/05/2025 Procedure Pass [facility] Angio Interventional Radiology [address] [place] [address] 08/25/2025 11:00 AM EST Office Visit [facility], [facility] [address] [place] [address], 11th [place] [address] Jeffry Schwartz MD, DMD 45 [place] [address] [email or web address] 01/03/2026 11:00 AM EDT Appointment [facility] Angio Interventional Radiology [address] [place] [address] Kiely Castellanos MD [address] [place] [address] [email or web address] documented as of this encounter Visit Diagnoses Not on filedocumented in this encounter Care Teams Truck Switcher Relationship Specialty Start Date End Date Arcenio Day MD [address] [place] [address] PCP - General 01/20/15 10/08/22 Nan Quiles MD 1 [place] [address] [email or web address] PCP - General Internal Medicine 10/09/22 11/25/22 Marissa Huff MD 1 [place] [address] [email or web address] PCP - General Internal Medicine 11/26/22 02/25/24 Marissa Huff MD 1 [place] [address] [email or web address] PCP - General Internal Medicine 02/26/24 09/13/24 Arcenio Day MD [address] [place] [address] PCP - General Internal Medicine 09/14/24 Jeffry Schwartz MD, DMD [address] [place] [address] [email or web address] 05/09/15 Arcenio Day MD [address] [place] [address] Referring Physician Internal Medicine 01/08/16 Nan Quiles MD 1 [place] [address] [email or web address] Insurance Assigned Provider 03/22/23 07/26/23 documented as of this encounter Additional Source Comments The information contained in this document represents components of the legal health record. It is not the complete legal health record.[facility]
--- OUTSIDE RECORDS SUMMARY | 2025-08-18 21:18 | XMS_ITS | Encounter Summary ---
Author Organization [facility] Address [address] [place] [address] [place] [address] Phone Care Team Providers Care Manager Er Name Role Phone Arcenio Day MD Primary Care Provider [phone] Jeffry Schwartz MD, DMD Unavailable [phone] Arcenio Day MD Unavailable [phone] Nan Quiles MD Primary Care Provider Marissa Huff MD Primary Care Provide r Nan Quiles MD Unavailable [phone] Marissa Huff MD Primary Care Provide r Arcenio Day MD Primary Care Provider + [phone] Encounter Details Date Type Department Care Team (Late st Contact Info) Description 08/30/[address] [facility] Periop [address] [place] [address] Social History Tobacco Use Types Packs/Day Years [...] Contact Info) Description 07/05/[address] [facility] Angio Interventional Radiology [address] [place] [address] 08/25/2025 11:00 AM EST Office Visit [facility], [facility] [place] [address] [place] [address], 11th [place] [address] Jeffry Schwartz MD, DMD 45 [place] [address] [email or web address] 01/03/2026 11:[address] [facility] Angio Interventional Radiology [address] [place] [address] Keily Castellanos MD 75 [place] [address] [email or web address] documented as of this encounter Visit Diagnoses Not on filedocumented in this encounter Care Teams Manager Er Relationship Specialty Start Date End Date Arcenio Day MD [address] [place] [address] PCP - General 01/20/15 10/08/22 Nan Quiles MD 1 [place] [address] [email or web address] PCP - General Internal Medicine 10/09/22 11/25/22 Marissa Huff MD 1 [place] [address] [email or web address] PCP - General Internal Medicine 11/26/22 02/25/24 Marissa Huff MD 1 [place] [address] [email or web address] PCP - General Internal Medicine 02/26/24 09/13/24 Arcenio Day MD [address] [place] [address] PCP - General Internal Medicine 09/14/24 Jeffry Schwartz MD, DMD [address] [place] [address] [email or web address] 05/09/15 Arcenio Day MD [address] [place] [address] Referring Physician Internal Medicine 01/08/16 Nan Quiles MD 1 [place] [address] [email or web address] Insurance Assigned Provider 03/22/23 07/26/23 documented as of this encounter Additional Source Comments The information contained in this document represents components of the legal health record. It is not the complete legal health record.[facility]
--- OUTSIDE RECORDS SUMMARY | 2025-08-18 21:18 | XMS_ITS | Encounter Summary ---
Author Organization [facility] Address [address] [place] [address] [place] [address] Phone Care Team Providers Care Death Claim Clerk Name Role Phone Arcenio Day MD Primary Care Provider [phone] Jeffry Schwartz MD, DMD Unavailable [phone] Arcneio Day MD Unavailable [phone] Nan Quiles MD Primary Care Provider Marissa Huff MD Primary Care Provide r Nan Quiles MD Unavailable +[phone] Marissa Huff MD Primary Care Provide r Arcenio Day MD Primary Care Provider + [phone] Encounter Details Date Type Department Care Team (Late st Contact Info) Description 03/02/[address] [facility] Periop [address] [place] [address] Social History Tobacco Use Types Packs/Day Years [...] Contact Info) Description 07/05/[address] [facility] Angio Interventional Radiology [address] [place] [address] 08/25/2025 11:00 AM EST Office Visit [facility], [facility] [place] [address] [place] [address], 11[address] [place] [address] Jeffry Schwartz MD, DMD 45 [place] [address] [email or web address] 01/03/2026 11:[address] [facility] Angio Interventional Radiology [address] [place] [address] Keily Castellanos MD 75 [place] [address] [email or web address] documented as of this encounter Visit Diagnoses Not on filedocumented in this encounter Care Teams Death Claim Clerk Relationship Specialty Start Date End Date Arcenio Day MD [address] [place] [address] PCP - General 01/20/15 10/08/22 Nan Quiles MD 1 [place] [address] [email or web address] PCP - General Internal Medicine 10/09/22 11/25/22 Marissa Huff MD 1 [place] [address] [email or web address] PCP - General Internal Medicine 11/26/22 02/25/24 Marissa Huff MD 1 [place] [address] [email or web address] PCP - General Internal Medicine 02/26/24 09/13/24 Arcenio Day MD [address] [place] [address] PCP - General Internal Medicine 09/14/24 Jeffry Schwartz MD, DMD [address] [place] [address] [email or web address] 05/09/15 Arcenio Day MD [address] [place] [address] Referring Physician Internal Medicine 01/08/16 Nan Quiles MD 1 [place] [address] [email or web address] Insurance Assigned Provider 03/22/23 07/26/23 documented as of this encounter Additional Source Comments The information contained in this document represents components of the legal health record. It is not the complete legal health record.[facility]
--- OUTSIDE RECORDS SUMMARY | 2025-08-18 21:18 | XMS_ITS | Clinical Summary ---
Author Organization [facility] Address [address] [facility] [address] [place] [address] Phone Care Team Providers Care Director Product Development Name Role Phone Jeffry Schwartz MD, DMD Unavailable [phone] Arcenio Day MD Unavailable Arcenio Day MD Primary Care Provider Allergies No known active allergies Medications nebulizer and compressor Rafaela Please dispense one. 1 each 3 Active atorvastatin (LIPITOR) 40 MG tablet 1 tablet (40 mg total) by Gastrostomy Tube route daily. 90 tablet 3 3 Active levothyroxine (SYNTHROID, LEVOTHROID) 50 MCG tablet 1 tablet (50 mcg total) by Gastrostomy Tube route daily. 90 tablet 3 3 Active carvedilol (COREG) 12.5 MG tablet 1 tablet (12.5 mg total) by Nasogastric Tube route 2 (two) times a day. 180 tablet 3 3 Active nutritional supplements 0.06 gram-1.2 kcal/mL LiqdIndications: Severe protein-calorie malnutrition 1,575 mL by Gastrostomy Tube route daily. 83903 mL 3 Active omeprazole (PRILOSEC) 40 MG capsule Take 40 mg by mouth daily. Active traZODone (DESYREL) 50 MG tablet Take 50 mg by mouth nightly at bedtime. Active Active Problems Problem Noted Date Diagnosed Date Feeding by G-tube 11/26/2022 Assessment & Plan (11/26/2022 4:20 PM EDT): Agree silver nitrate application three times weekly as recommended by wound care. Ordered to pharmacy. Called [facility] to relay. Increase protonix to 40mh bid. [...] recommendations - Daily weights - NPO per CONSTRUCTION SITE MANAGER - Continue TF via PEG History of difficult intubation 09/23/2022 Respiratory failure 08/31/2022 Assessment & Plan (10/04/2022 2:32 PM EST): Trach downsized to 4 cuffless Shiley on 09/25/22. - Appreciate Respiratory Therapy recommendations - Trach care per ENT/RT - NPO per CONSTRUCTION SITE MANAGER. Nutrition via PEG. - Standard aspiration precautions [...] Schwartz's office to reschedule sooner than July Encounters Date Type Department Care Team Description 07/05/2025 9:56 AM EDT - 07/05/2025 5:00 PM EDT Hospital Encounter [facility] L2 PRU [address] [place] [address] Amauri Rausch MD Nadim, Bardia, MD Toland, Christine, RN Fofana Immanuel Discharge Disposition: Home or Self Care 07/05/2025 9:43 AM EDT - 07/05/2025 9:55 AM EDT Hospital Encounter [facility] Phlebotomy Admitting [address] [place] [address] Amauri Rausch MD Discharge Disposition: Home or Self Care 07/05/2025 Orders Only [facility] [address] [place] [address] Cathie Alonso MD Feeding by G-tube (Primary Dx) 06/06/2025 8:30 AM EDT Telemedicine [facility] Radiology Angio IR Clinic [address] [place] [address] Amauri Rausch MD Oropharyngeal dysphagia (Primary Dx) 06/06/2025 Procedure Pass [facility] L2 PRU [address] [place] [address] from Last 3 Months Immunizations Immunization Administration Dates Next Due Influenza [...] Orientation Straight 07/05/2025 9: 57 AM EDT Last Filed Vital Signs Vital Sign Reading Time Taken Comments Blood Pressure 171/84 07/05/2025 3:15 PM EDT Pulse 72 07/05/2025 3:00 PM EDT Temperature 36.2 C (97.2 F) 07/05/2025 3:00 PM EDT Respiratory Rate 17 07/05/2025 2:20 PM EDT Oxygen Saturation 97% 07/05/2025 3:15 PM EDT Inhaled Oxygen Concentration 30% 10/05/2022 8 :57 AM EST Weight 59 kg (130 lb) 07/05/2025 10:18 AM EDT Height 162.6 cm (5' 4 ) 07/05/2025 10:18 AM EDT Body Mass Index 22.31 07/05/2025 10:18 AM EDT Plan of Treatment Upcoming Encounters Date Type Department Care Team (Late st Contact Info) Description 07/05/2025 Procedure Pass [facility] Angio Interventional Radiology [address] [place] [phone] 08/25/2025 11:00 AM EST Office [facility] [address], [address] [place] [address] Jeffry Schwartz MD, DMD [address] [place] [address] [email or web address] 01/03/2026 11:00 AM EDT Appointment [facility] Angio Interventional Radiology [address] [place] [address] Keily Castellanos MD [address] [place] [address] [email or web address] Health Maintenance Due Date Last Done Comments DEPRESSION SCREENING 1967 SMOKING Hx and SMOKELESS TOBACCO SCREENING 1968 PNEUMOCOCCAL VACCINES (50+ years) (1 of 2 - PCV) 1974 COLOGUARD 2000 COLONOSCOPY 2000 COLORECTAL CANCER SCREENING 2000 FIT TEST 2000 FOBT 2000 SIGMOIDOSCOPY 2000 VIRTUAL COLONOSCOPY 2000 ABDOMINAL AORTIC ANEURYSM (AAA) SCREENING 2020 TSH LEVEL 10/30/2023 10/30/2022, 09/03/2022 BLOOD PRESSURE 02/23/2025 08/25/2024 COVID-19 VACCINE ( season) 2025 06/30/2025, 07/08/2024, 06/27/2023, Additional history exists RSV VACCINE (1 - 1-dose 75+ series) 2030 Adult Td,Tdap Booster 04/13/2031 04/13/2021 ZOSTER VACCINES Completed 06/22/2019, 03/17, 09/06/2016 HEPATITIS C SCREENING Completed 10/30/2022, 023 INFLUENZA VACCINE Completed 06/30/2025, , 06/27/2023, Additional history exists HEPATITIS A VACCINES Aged Out No long [...] Procedure Name Priority Date/Time Associated Diagnosis Comments IR GASTROSTOMY Routine 07/05/2025 3:05 PM EDT Oropharyngeal dysphagia CBC STAT 07/05/2025 9:46 AM EDT PT-INR STAT 07/05/2025 9:46 AM EDT BASIC METABOLIC PANEL (BMP) STAT 07/05/2025 9:46 AM EDT HEPATITIS C ANTIBODY, QUALITATIVE Routine 10/30/2022 2:33 PM EST Need for hepatitis C screening test THYROID STIMULATING HORMONE (TSH) Routine 10/30/2022 2:33 PM EST Acquired hypothyroidism from Last 3 Months or Most Recently Relevant to Health Maintenance Results * IR Gastrostomy Exchange/Replacement (07/05/2025 3:05 PM EDT) Anatomical Region Laterality Modality Abdomen Interventional R adiography 07/05/2025 3:36 PM EDT Narrative 07/05/2025 5:15 PM EDT Procedure: Percutaneous gastrostomy tube exchange Clinical History and Indication: 69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 Operators: Attending: Keily Castellanos MD Resident/Fellow: Cathie Alonso MD Pre-Procedural Medications: Antibiotics: None. Other: None. Intra-Procedural Medications and Contrast: See medication administration in electronic medical record for details. Sedation: None. Patient Radiation Dose: Fluoroscopy Time: 0.19 minutes. Cumulative Dose: 102 mGy. Majf-Siuq-Xjzvqod: 303 microGy x m^2. To convert from mGy x cm^2 to microGy x m^2, divide by 10 Device(s): Avanos ROMEO 20 [place]an Enfit-compatible Gastrostomy Tube. Technique and Findings: Written informed consent was obtained. The patient was prepped and draped in a sterile fashion. A Procedural Time-Out was performed immediately prior to the procedure. The existing 20 [place] Ponsky gastrostomy tube was first removed with steady firm traction. A new 20 [place] Avanos ROMEO Enfit-compatible gastrostomy tube was placed through the existing tract. The retention balloon was inflated with 8 mL of sterile water. Post exchange contrast injection demonstrates good position within the gastric lumen. The retention bumper was advanced to the 1.5 cm marker and tied with 0- silk suture. All procedural wires, catheters, and sheaths were removed and/or accounted for at the completion of the procedure. Specimens Submitted: None. Adverse Events: None. Estimated Blood Loss: Minimal. Summary: 1. Percutaneous gastrostomy tube exchange. Plan: 1. The device is ready for use. 2. Flush at least daily and after each use. 3. Return in 6 months for preventive maintenance tube exchange. Attestation: Keily Castellanos MD was present for the amaya portions of the procedure and was immediately available to return as needed. ATTESTATION: I, Keily Castellanos, as teaching physician have reviewed the images, if any, for this patient's exam, and if necessary, have edited the report originally created by Cathie Alonso. Procedure Note Keily Castellanos MD - 07/05/2025 Procedure: Percutaneous gastrostomy tube exchange Clinical History and Indication: 69M with history of pharyngeal SCC s/pdefinitive chemoXRT and neck dissection requiring PEG (surgically [id number]/06/2022) presenting for first-time exchange. Operators: Attending: Keily Castellanos MD Resident/Fellow: Cathie Alonso MD Pre-Procedural Medications: Antibiotics: None. Other: None. Intra-Procedural Medications and Contrast: See medication administrationin electronic medical record for details. Sedation: None. Patient Radiation Dose: Fluoroscopy Time: 0.19 minutes. Cumulative Dose: 102 mGy. Hawl-Atbp-Crvlbrb: 303 microGy x m^2. To convert from mGy x cm^2 to microGy x m^2, divide by 10 Device(s): Avanos ROMEO 20 [place]an Enfit-compatible Gastrostomy Tube. Technique and Findings: Written informed consent was obtained. The patientwas prepped and draped in a sterile fashion. A Procedural Time-Out wasperformed immediately prior to the procedure. The existing 20 Bel[place] Ponsky gastrostomy tube was first removed withsteady firm traction. A new 20 [place] Avanos ROMEO Enfit-compatiblegastrostomy tube was placed through the existing tract. The retentionballoon was inflated with 8 mL of sterile water. Post exchange contrastinjection demonstrates good position within the gastric lumen. Theretention bumper was advanced to the 1.5 cm marker and tied with 0-silksuture. All procedural wires, catheters, and sheaths were removed and/or accountedfor at the completion of the procedure. Specimens Submitted: None. Adverse Events: None. Estimated Blood Loss: Minimal. Summary: 1. Percutaneous gastrostomy tube exchange. Plan: 1. The device is ready for use. 2. Flush at least daily and after each use. 3. Return in 6 months for preventive maintenance tube exchange. Attestation: Keily Castellanos MD was present for the amaya portions of the procedureand was immediately available to return as needed. ATTESTATION: I, Keily Castellanos, as teaching physician have reviewed theimages, if any, for this patient's exam, and if necessary, have edited thereport originally created by Cathie Alonso. Amauri Rausch MD IMG IR ABDOMINAL Final Result * PT-INR (07/05/2025 9:46 AM EDT) PT 11.7 10.0 - 13.0 sec [facility] INR 1.0 0.9 - 1.1 [facility] 07/05/2025 9:46 AM EDT 07/05/2025 10:02 AM EDT us Keily Castellanos MD LAB BLOOD BKR ORDERABLES Fi nal Result [facility] [address] [place] [address] * (ABNORMAL) CBC (07/05/2025 9:46 AM EDT) WBC 7.22 4.00 - 11.00 K/uL [facility] RBC 5.53 4.50 - 5.90 M/uL [facility] HGB 16.4 13.5 - 17.5 g/dL [facility] HCT 51.0 41.0 - 53.0 % [facility] PLT 164 150 - 450 K/uL [facility] MCV 92.2 80.0 - 100.0 fL [facility] MCH 29.7 27.0 - 31.0 pg [facility] MCHC 32.2 32.0 - 36.0 g/dL [facility] RDW 15.8(H) 11.5 - 14.5 % [facility] MPV 11.3 8.4 - 12.0 fL [facility] NRBC 0.00 0.00 /100 WBCs [facility] ABSOLUTE NRBC 0.00 0.00 K/uL [facility] 07/05/2025 9:46 AM EDT 07/05/2025 10:02 AM EDT us Keily Castellanos MD LAB BLOOD BKR ORDERABLES Fi nal Result Performing Organization Address City/State/[facility] Co de Phone Number [facility] [address] [place] [phone] * (ABNORMAL) Basic metabolic panel (07/05/2025 9:46 AM EDT) SODIUM 138 136 - 145 mmol/L [facility] POTASSIUM 4.7 3.4 - 5.1 mmol/L [facility] CHLORIDE 96(L) 98 - 107 mmol/L [facility] CO2 31 22 - 31 mmol/L [facility] BUN 19 6 - 23 mg/dL [facility] CREATININE 0.76 0.50 - 1.20 mg/dL [facility] GLUCOSE 105(H) 70 - 100 mg/dL [facility] CALCIUM 10.0 8.8 - 10.7 mg/dL [facility] EGFR 97 >59 mL/min/1.7 3m2 [facility] Comment:Estimated glomerular filtration rate calculated using the CKD-EPI refit equation. ANION GAP 11 7 - 17 mmol/L [facility] 07/05/2025 9:46 AM EDT 07/05/2025 10:02 AM EDT us Keily Castellanos MD LAB BLOOD BKR ORDERABLES Fi nal Result [facility] [address] [place] [address] * Hepatitis C antibody, qualitative (10/30/2022 2:33 PM EST) HCV Nonreactive Nonreactive [facility] Comment: Blood 10/30/2022 2:33 PM EST 10/30/2022 2:36 PM EST Nan Quiles MD LAB BLOOD BKR ORDERABLE S Final Result Performing Organization Address City/[facility] [address]/ZIP Co de Phone Number [facility] [address] [place] [phone] * TSH (10/30/2022 2:33 PM EST) TSH 2.66 0.50 - 5.70 uIU/mL [facility] Blood 10/30/2022 2:33 PM EST 10/30/2022 2:36 PM EST Nan Quiles MD LAB BLOOD BKR ORDERABLE S Final Result Performing Organization Address City/[facility] [address]/[facility] Co de Phone Number [facility] [address] [place] [phone] from Last 3 Months or Most Recently Relevant to Health Maintenance Insurance MEDICARE PART A & B [employer] CROSS MEDEX SUPPLEMENT MEDICARE PART A & B [employer]OSS [employer] SUPPLEMENT MEDICARE PART A & B [employer] SUPPLEMENT MEDICARE PART A & B MEDICARE PART A & B MEDICARE PART A & B [employer] MEDEX SUPPLEMENT MEDICARE PART A & B [employer] MEDEX SUPPLEMENT MEDICARE PART A & B MEDICARE PART A & B [employer] MEDEX SUPPLEMENT Advance Directives For more information, please contact: [phone] (9AM - 5PM Sheryl/[facility], Friday-Friday) Documents on File Type Date Recorded Patient Time Cycle Operator Expl anation Advance Directive - Non Epic LMR 01/31/2010 12:00 AM * Full Code (Latest Code Status on File) Date Activated Date Inactivated Comments 09/01/2022 2:05 AM Question Answer Comments Code Status Confirmed With: Family Code Status Communicated To: Inpatient Attending Care Teams Director Product Development Relationship Specialty Start Date End Date Arcenio Day MD [address] [place] [address] PCP - General Internal Medicine 09/14/24 Jeffry Schwartz MD, DMD [email or web address] 05/09/15 Arcenio Day MD [address] [place] [phone] Referring Physician Internal Medicine 01/08/16 Additional Source Comments The information contained in this document represents components of the legal health record. It is not the complete legal health record.[facility]
--- OUTSIDE RECORDS SUMMARY | 2025-08-18 21:18 | XMS_ITS | Encounter Summary ---
Author Organization [facility] Address [address] [place] [address] Phone Care Team Providers Care Marine Animal Trainer Name Role Phone Arcenio Day MD Primary Care Provider [phone] Jeffry Schwartz MD, DMD Unavailable [phone] Arcenio Day MD Unavailable [phone] Nan Quiles MD Primary Care Provider Marissa Huff MD Primary Care Provide r Nan Quiles MD Unavailable [phone] Marissa Huff MD Primary Care Provide r Arcenio Day MD Primary Care Provider [phone] Encounter Details Date Type Department Care Team (Late st Contact Info) Description 08/05/2022 Telephone [facility] [place] [address] [place] [address], [address] [place] [address] Jeffry Schwartz MD, DMD [address] [place] [address] [email or web address] Social History Tobacco Use Types Packs/Day Years [...] st Contact Info) Description 07/05/2025 Procedure Pass [facility] Angio Interventional Radiology [address] [place] [phone] 08/25/2025 11:00 AM EST Office Visit [facility] [place] [address] [place] [address], [address] [place] [address] Jeffry Schwartz MD, DMD [address] [place] [phone] [email or web address] 01/03/2026 11:00 AM EDT Appointment [facility] Angio Interventional Radiology [address] [place] [phone] Keily Castellanos MD [address] [place] [phone] [email or web address] documented as of this encounter Visit Diagnoses Not on filedocumented in this encounter Care Teams Marine Animal Trainer Relationship Specialty Start Date End Date Arcenio Day MD [address] [place] [phone] PCP - General 01/20/15 10/08/22 Nan Quiles MD [address] [place] [phone] [email or web address] PCP - General Internal Medicine 10/09/22 11/25/22 Marissa Huff MD [address] [place] [phone] [email or web address] PCP - General Internal Medicine 11/26/22 02/25/24 Marissa Huff MD [address] [place] [phone] [email or web address] PCP - General Internal Medicine 02/26/24 09/13/24 Arceino Day MD [address] [place] [address] PCP - General Internal Medicine 09/14/24 Jeffry Schwartz MD, DMD [address] [place] [address] [email or web address] 05/09/15 Arcenio Day MD [address] [place] [address] Referring Physician Internal Medicine 01/08/16 Nan Quiles MD [address] [place] [phone] [email or web address] Insurance Assigned Provider 03/22/23 07/26/23 documented as of this encounter Additional Source Comments The information contained in this document represents components of the legal health record. It is not the complete legal health record.[facility]
== END 2025-08-18 15:20 | disposition home or self-care (01) ==
LOC: HO.HKAS 14:58
PROVIDERS: PCP Internal Medicine; Visit Provider Internal Medicine Nephrology
DX: I10 Essential (primary) hypertension (principal); R80.8 Other proteinuria
CPT/HCPCS: 99214

== ENCOUNTER → 2025-08-18 14:58 | Outpatient (BNVA) | payer MEDICARE, SELFPAY | PROVIDERS: PCP Internal Medicine; Visit Provider Internal Medicine Nephrology | DX: I10 Essential (primary) hypertension (principal); R80.8 Other proteinuria | CPT/HCPCS: 99212 ==